=== PATIENT | female | born 1970 | race American Indian/Alaskan Native ===

== ENCOUNTER 2025-09-26 10:14 | Inpatient (IN) | payer MEDICAID, SELFPAY ==
[2025-09-26] VITALS (27 sets, daily range): BP systolic 124–181; BP diastolic 51–115; PULSE 62–97; RESP 11–82; TEMP 36–36.8; O2SAT 82–97; BMI 58.2; BMI 58.4
--- NOTE | 2025-09-26 10:20 | EKG_ITS ---
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
--- NOTE | 2025-09-26 11:10 | PC.NURSE ---
no answer when called to be vitaled
--- NOTE | 2025-09-26 11:30 | PC.NURSE ---
PT HERE WITH C/O SOB/FEELING HOT, COUGH, AND BACK PAIN FOR 1 WEEK
--- NOTE | 2025-09-26 12:02 | XR_ITS ---
EXAMINATION: AP chest single view TECHNIQUE: AP portable upright chest single view Date and time: September 26, 2025, 1233 hours, comparison November 09, 2023 INDICATIONS: Chest pain shortness of breath today. FINDINGS: The film is underpenetrated. The film is severely rotated LPO Moderate enlargement cardiac contour prominent vascular congestion and perihilar edema IMPRESSION: Severely limited technique Prominent heart failure
--- NOTE | 2025-09-26 12:03 | EDNOTE_ITS ---
ED SOB =RME/HPI General Chief Complaint: Shortness of Breath/Dyspnea Stated Complaint: SOB X 1 WEEK, FEVERS, COUGH, BACK PAIN Time Seen by Provider: 09/26/25 11:15 Arrival date/time: 09/26/25 10:14 55-year-old female patient, morbidly obese, with significant history of hypertension, COPD, depression diabetes mellitus came in for evaluation regarding shortness of breath. Patient's been having worsening shortness of breath for 1 week, associated with fever for 2 days last week, cough, and upper back pain. Patient is currently using oxygen at home on and off 2 L to help with shortness of breath. According to the patient for the last few days he is having dyspnea on exertion,, he had to stop wearing his walking because of worsening shortness of breath. Also complained of bilateral lower leg swelling severity mild. Denies any other complaints. Patient is from [place] she does arrive in this town 10 days ago. Related Data Home Medications ?Medication ?Instructions ?Recorded ?Confirmed albuterol sulfate 90 mcg/actuation 1 - 2 puff inhalati on Q4H PRN sob 12/04/16 11/03/21 aerosol inhaler (ProAir HFA) #0 inhalations arformoterol 15 mcg/2 mL solution 2 ml inhalation BID 11/03/21 11/03/21 for nebulization (Brovana) insulin glargine 100 unit/mL 25 unit subcut QDAY 11/0311/03/21 subcutaneous solution (Lantus U-100 Insulin) isosorbide mononitrate 30 mg 60 mg PO QDAY 11/03/21 tablet,extended release 24 hr buspirone 7.5 mg tablet 7.5 mg PO QDAY 06/27/2206/12 carvedilol 25 mg tablet 25 mg PO BID 06/27/22 cyclobenzaprine 10 mg tablet 10 mg PO QDAY 06/27/22 Previous Rx's ?Medication ?Instructions ?Recorded amlodipine 10 mg tablet (Norvasc) 10 mg PO QDAY #30 ta bs 09/05/23 amlodipine 5 mg tablet 10 mg (2 x 5 mg) PO QDAY #30 tabs 09/05/23 aspirin 81 mg capsule 81 mg PO QDAY #30 caps 09/05 aspirin 81 mg tablet,delayed 81 mg PO QDAY #30 tabs release atorvastatin 80 mg tablet 80 mg PO QPM #30 tabs atorvastatin 80 mg tablet 80 mg PO QPM #30 tabs sodium zirconium cyclosilicate 10 10 g PO QDAY #30 ea 09/05/23 gram oral powder packet (Lokelma) hydrochlorothiazide 25 mg tablet 25 mg PO QDAY #30 tab s 11/09/23 lisinopril 20 mg tablet 20 mg PO QDAY #30 tabs 11/09 methocarbamol 750 mg tablet 750 mg PO TID #20 tabs Allergies Allergy/AdvReac Type Severity Reaction Status Date / Time sertraline Allergy Intermediate SHAKY Verified 09/26/25 10:18 Review of Systems Review of Systems Narrative Review of Systems: Review of system reviewed and within normal limits except mentioned in HPI ED Exam Narrative Physical exam: VITAL SIGNS: Reviewed. GENERAL APPEARANCE: Alert and interactive, follows commands, no acute distress, HEAD AND FACE: Non-traumatic. ENT: PERRL, pink conjunctivitis, eyelid no trauma, Mucous membrane moist. NECK: Supple, nontender, no nuchal rigidity. CHEST: No tenderness, no crepitus, no paradoxical movement, no retractions. LUNGS: Clear, well ventilated, symmetric, no rales, no wheezing, no ronchi, no stridor, good breath sounds bilaterally. HEART: Regular rate, regular rhythm, no murmur, no gallops. ABDOMEN: Soft, positive bowel sounds, nondistended, no guarding, nontender, no rebound, no masses, RECTAL: Deferred. GENITAL: Deferred. NEUROLOGICAL: Gross motor function intact sensory function intact, Appropriate for age. MUSCULOSKELETAL: low back nontender, full range of motion. EXTREMITIES: Bilateral lower extremity edema +2 nontender, full range of motion. Distal neurovascular status intact SKIN: Color pink, dry, no rash, no lacerations, no abrasions, no contusions. LYMPHATICS: Deferred. Course Quality Measures none Orders Category Date Time Status Bedside Blood Glucose Q2HX3 Care 09/26/25 14:04 Active COVID-19 Screening Questionnaire NOW Care 09/26/25 14:08 Active Decision to Admit X1 Care 09/26/25 14:08 Active EKG (ED ONLY) *Do not use* NOW Care 09/26/25 10:21 Completed EKG (ED ONLY) *Do not use* NOW Care 09/26/25 12:03 Completed Consult to Nephrology Stat Cons 09/26/25 14:03 Ordered EKG (ED Only) Stat Exams 09/26/25 10:20 Draft EKG (ED Only) Stat Exams 09/26/25 12:03 Ordered XR chest 1V Stat Exams 09/26/25 12:02 Completed B-Type Natriuretic Peptide Stat Lab 09/26/25 12:00 Completed CBC Stat Lab 09/26/25 12:00 Completed Comprehensive Metabolic Panel Stat Lab 09/26/25 12:00 Completed Partial Thromboplastin Time Stat Lab 09/26/25 12:00 Completed Prothrombin Time with INR Stat Lab 09/26/25 12:00 Completed Troponin I Stat Lab 09/26/25 12:00 Completed Urinalysis, C/S if Indicated Stat Lab 09/26/25 12:02 Ordered VBG [Venous Blood Gas] Stat Lab 09/26/25 12:00 Completed ALBUTEROL RT 0.5ml [Proventil Rt 0.5ml] Med 09/26/25 14:03 Discontinued 7.5 mg INH X1 ONE Calcium Chloride 10% Abboject Med 09/26/25 14:03 Discontinued 10 ml IV X1 ONE Dexamethasone Inj [Decadron Inj] Med 09/26/25 12:06 Discontinued 10 mg IVP X1 ONE Furosemide Inj [Lasix Inj] Med 09/26/25 12:02 Discontinued 40 mg IVP X1 ONE Insulin Regular Med 09/26/25 14:03 Once 5 unit IV X1 ONE Nitroglycerin Oint 2% [Nitro-paste Oint 2%] Med 09/26/25 12:02 Discontinued 1 inch TOP X1 ONE Sod Polystyrene Sulfon Susp [Kayexalate Susp] Med 09/26/25 14:03 Discontinued 30 gm PO X1 ONE Sodium Chloride 0.9% 1000 ml [Ns] 1,000 ml Med 09/26/25 14:04 Active IV 999 mls/hr Sodium Chloride Rt Ariadne 0.9% [NS Rt Ariadne 0.9%] Med 09/26/25 14:03 Active 3 ml INH PRN PRN Vital Signs Vital signs: Vital Signs Pulse Oximetry (%) 87 L 09/26/25 10:21 Oxygen Delivery Method Nasal Cannula 09/26/25 10:21 Oxygen Flow Rate 2 09/26/25 10:21 Shortness of Breath / Dyspnea MDM Narrative MDM Narrative:: 55-year-old female patient, morbidly obese, with significant history of hypertension, COPD, depression diabetes mellitus came in for evaluation regarding shortness of breath. Patient's been having worsening shortness of breath for 1 week, associated with fever for 2 days last week, cough, and upper back pain. Patient is currently using oxygen at home on and off 2 L to help with shortness of breath. According to the patient for the last few days he is having dyspnea on exertion,, he had to stop wearing his walking because of worsening shortness of breath. Also complained of bilateral lower leg swelling severity mild. Denies any other complaints. Patient is from [place] she does arrive in this town 10 days ago. Patient's workup is significant for potassium 6.0, creatinine 4.4 BUN of 52 chest x-ray showed mild heart failure pattern. No pneumonia noted BNP 187 EKG showed sinus rhythm, ventricular rate of 63 bpm, no ST segment elevation or depression noted. Plan of care discussed with the patient including admission. Patient was given hyperkalemia treatment, including Lasix, IV fluids albuterol IV insulin IV glucose and Kayexalate. I discussed this case with bus operator on-call, Dr Cornell, who will see the latonia bernal also in the floor. Thank you Dr. Humphrey Case discussed with hospitalist, who admitted the patient. Patient data External records reviewed:: None Clinical information provided by:: patient and family Social determinants that could affect healthcare access:: none Patient has the following chronic illnesses:: Hypertension CKD, COPD How is presenting disease/condition affected by chronic disease/condition?: exa cerbated by Evaluation data The following diagnostics were reviewed and interpreted by me:: lab results, radiology exam(s) and EKG tracing(s) Lab and/or radiology exams considered but not ordered:: None Interpretation Summary: See above Medications / Prescriptions Medications or Prescriptions considered but not ordered:: None Medication administrations:: Medication Administration History Sodium Chloride (Ns) 1,000 mls @ 999 mls/hr IV .Q1H1M ONE Stop: 09/26/25 15:04 Insulin Human Regular (Insulin Hum Regular 1 Unit/0.01 Ml (Per Unit)) 5 unit IV X1 ONE Stop: 09/26/25 14:04 Sodium Chloride (Sodium Chloride Rt Ariadne 0.9% 3 Ml Nebu) 3 ml INH PRN PRN PRN Reason: SOLN Stop: 10/26/25 14:02 Discontinued Medications Albuterol (Albuterol Rt 2.5 Mg/0.5 Ml Nebu) 7.5 mg INH X1 ONE Stop: 09/26/25 14:04 Calcium Chloride (Calcium Chloride 10% Inj 10 Ml Syrg) 10 ml IV X1 ONE Stop: 09/26/25 14:04 Dexamethasone Sodium Phosphate (Dexamethasone Sod Phos Inj 10 Mg/Ml Vial) 10 mg IVP X1 ONE Stop: 09/26/25 12:07 Last Admin: 09/26/25 13:24 Dose: 10 mg Documented By: [facility] Comments: in error 2 iv sites showing Furosemide (Furosemide Inj 10 Mg/Ml 4ml Vial) 40 mg IVP X1 ONE Stop: 09/26/25 12:03 Last Admin: 09/26/25 13:27 Dose: 40 mg Documented By: [facility] Nitroglycerin (Nitroglycerin Oint 2% 1 Inch Packet) 1 inch TOP X1 ONE Stop: 09/26/25 12:03 Last Admin: 09/26/25 13:25 Dose: 1 inch Documented By: [facility] Sodium Polystyrene Sulfonate (Sod Polystyrene Sulfon Susp 15 Gm/60 Ml Btl) 30 gm PO X1 ONE Stop: 09/26/25 14:04 See above Consultations Consultation(s) initiated? (list below): Yes Consultation #1 (Physician, Specialty, Details): Dr Cornell Diagnosis Shortness of Breath Differential Diagnosis: acute exacerbation of chronic obstructive airways disease, congestive heart failure and community acquired pneumonia Most likely diagnosis given after review of the tests above:: Hyperkalemia, SUZANNE on CKD Admission Indicated Admission indicated?: indicated Admission Request Was there a request for admission?: Yes Admission Attestation Admission request attestation: Discussed case with [Dr. Jamshid Zhu] from Hospitalist service regarding admission. Discussed patients ED course, exam findings, labs, and radiology results. The Hospitalist [agrees,] to accept the patient for admission. Disposition Plan Disposition Plan: Admit Discharge Plan Plan Patient Disposition: Admit Acute Care w/in Hospital Prescriptions/Referrals Prescriptions/Med Rec: No Action albuterol sulfate [ProAir HFA] 8.5 GM HFA aerosol inhaler 1 - 2 puff Inhalation Q4H PRN (Reason: sob) Qty: 0 Lantus U-100 Insulin 100 unit/mL Solution 25 unit SUBCUT QDAY isosorbide mononitrate 30 mg Tablet Extended Release 24 Hr 60 mg PO QDAY arformoterol [Brovana] 15 mcg/2 mL Solution For Nebulization 2 ml INHALATION BID cyclobenzaprine 10 mg tablet 10 mg PO QDAY Patient Comments: TAKE ONE TABLET BY MOUTH TWICE DAILY NEEDED FOR muscle pain carvedilol 25 mg tablet 25 mg PO BID Patient Comments: TAKE ONE TABLET BY MOUTH TWICE DAILY WITH FOOD buspirone 7.5 mg tablet 7.5 mg PO QDAY Patient Comments: TAKE ONE TABLET BY MOUTH TWICE DAILY atorvastatin 80 mg Tablet 80 mg PO QPM Qty: 30 0RF amlodipine 5 mg Tablet 10 mg PO QDAY Qty: 30 0RF aspirin 81 mg Tablet,Delayed Release (Dr/Ec) 81 mg PO QDAY Qty: 30 0RF Lokelma 10 gram powder in packet 10 g PO QDAY Qty: 30 0RF aspirin 81 mg capsule 81 mg PO QDAY Qty: 30 0RF atorvastatin 80 mg tablet 80 mg PO QPM Qty: 30 0RF amlodipine [Norvasc] 10 mg tablet 10 mg PO QDAY Qty: 30 0RF lisinopril 20 mg tablet 20 mg PO QDAY Qty: 30 0RF hydrochlorothiazide 25 mg tablet 25 mg PO QDAY Qty: 30 0RF methocarbamol 750 mg tablet 750 mg PO TID Qty: 20 0RF Referrals: No Primary/Family,Physician [Primary Care Provider] - In 1 week Problem List Clinical Impression: Acute hyperkalemia, Acute kidney injury superimposed on chronic kidney disease Patient/Caregiver Discharge Instructions Print Language: Azeri Stand Alone Forms: Katerin Award Info., Patient Portal Info Letter
[2025-09-26 12:15] LABS: Base Excess, Venous -5 (-3-3); O2 Saturation, Venous 81 % (96-97); PCO2, Venous 59 mmHg (36-56); PO2, Venous 48 mmHg (15-58); pH, Venous 7.21 (7.33-7.66)
[2025-09-26 12:23] LABS: Basophils # (Auto) 0.1 Thou/mm3 (0.0-0.2); Basophils % (Auto) 1 % (0-2.5); Eosinophils # (Auto) 0.1 Thou/mm3 (0.0-0.5); Eosinophils % (Auto) 1 % (0-10); Hematocrit 35.8 % (36.0-46.0); Hemoglobin 10.3 g/dL (12.0-16.0); Immature Granulocytes Auto 0.15 Thou/mm3 (0.00-0.00); Lymphocytes # (Auto) 0.6 Thou/mm3 (1.0-4.8); Lymphocytes % (Auto) 8 % (10-50); Mean Corpuscular HGB Conc 28.8 g/dl (31.0-37.0); Mean Corpuscular Hemoglobin 27.2 pg (25.0-35.0); Mean Corpuscular Volume 95 fL (80-100); Monocytes # (Auto) 0.4 Thou/mm3 (0.0-0.8); Monocytes % (Auto) 5 % (0-12); Neutrophils # (Auto) 6.4 Thou/mm3 (1.8-7.7); Neutrophils % (Auto) 83 % (37-80); Nucleated Red Blood Cell # 0.03 Thou/mm3 (0.00-0.00); Nucleated Red Blood Cell % 0 /100 WBC (0); Platelet Count 207 Thou/mm3 (140-440); RDW Standard Deviation 48.5 fL (36.4-46.3); Red Blood Count 3.79 Miln/mm3 (4.00-5.20); White Blood Count 7.7 Thou/mm3 (3.6-11.0)
[2025-09-26 12:35] LABS: INR 1.1 (0.9-1.3); Partial Thromboplastin Time 32.9 Seconds (22.0-36.0); Prothrombin Time 11.4 Seconds (9.0-12.2)
--- NOTE | 2025-09-26 12:53 | PC.NURSE ---
MEDS DELAYED DUE TO NO IV ACCESS AFTER MULTIPLE ATTEMPTS
[2025-09-26 13:06] LABS: Alanine Aminotransferase 8 U/L (10-49); Albumin, Serum 4.0 gm/dL (3.5-5.0); Albumin/Globulin Ratio 1.5 (1.2-2.2); Alkaline Phosphatase 55 U/L (46-116); Anion Gap 8 (7-16); Aspartate Amino Transferase < 10 U/L (0-34); BUN/Creatinine Ratio 12 Ratio (12-20); Bilirubin,Total 0.3 mg/dL (0.3-1.2); Blood Urea Nitrogen 52 mg/dL (9-23); Calcium 8.6 mg/dL (8.3-10.6); Calcium (Corrected) 8.6 mg/dL (8.5-10.1); Carbon Dioxide 23.4 mMol/L (20.0-31.0); Chloride 112 mMol/L (98-107); Creatinine (Component) 4.4 mg/dL (0.6-1.3); Estimated Creatinine Clearance 21.8 mL/min (>60); Globulin 2.6 gm/dL (2.3-3.5); Glucose 160 mg/dL (74-106); Osmolality,Calculated 301 (275-295); Potassium 6.0 mMol/L (3.4-5.1); Sodium 143 mMol/L (136-145); Total Protein 6.6 gm/dL (5.7-8.2); Troponin I < 0.002 ng/mL (0.0-0.045); eGFR 11 See Note
[2025-09-26 13:16] LABS: B-Type Natriuretic Peptide 187 pg/mL (0-100)
[2025-09-26] MEDS: DEXAMETHASONE SOD PHOS INJ 10 MG/ML VIAL IVP (13:24)
[2025-09-26] MEDS: NITROGLYCERIN OINT 2% 1 INCH PACKET TOP (13:25)
[2025-09-26] MEDS: FUROSEMIDE INJ 10 MG/ML 4ML VIAL 40 MG IVP ×2 (13:27→18:56)
[2025-09-26] MEDS: SODIUM CHLORIDE RT SOL 0.9% 3 ML NEBU INH (14:27)
[2025-09-26] MEDS: ALBUTEROL RT 2.5 MG/0.5 ML NEBU 7.5 MG INH (14:27)
[2025-09-26] MEDS: INSULIN HUM REGULAR 1 UNIT/0.01 ML (PER UNIT) 5 UNIT IV (14:45)
[2025-09-26] MEDS: DEXTROSE 50%-WATER INJ 50 ML SYRINGE IV (14:47)
[2025-09-26] MEDS: SOD POLYSTYRENE SULFON SUSP 15 GM/60 ML BTL 30 GM PO (14:48)
[2025-09-26] MEDS: CALCIUM CHLORIDE 10% INJ 10 ML SYRG IV (14:48)
[2025-09-26] MEDS: SODIUM CHLORIDE 0.9% 1000 ML 1,000 ML 999 ML IV (14:49)
--- NOTE | 2025-09-26 14:58 | PD.RESHP ---
Documentation for date of: 09/26/25 HPI History of Present Illness Chief complaint: Shortness of breath History of present illness: A 55-year-old female who who is morbidly obese with significant past medical history of hypertension, diabetes mellitus, heart failure, chronic kidney disease, hyperlipidemia, chronic anemia, obstructive sleep apnea on CPAP, on oxygen, 2 L at home presented to the hospital with chief complaints of shortness of breath since 3 days. Patient is a resident of [place], [place] came to visit her family 5 days ago. Reported that she is not compliant with medications over the last 5 days. Noted that shortness of breath is gradual in onset and progressive in nature also noted to have mild pedal edema but also reported that she has on and off pedal edema. Denies PND, orthopnea. Reported that she had a febrile episode 2 days before the day of hospitalization which resolved even without taking any medication. Denies cough, nausea, vomiting, abdominal distention, diarrhea, any other associated symptoms. Patient reported that she follows with field operator in [place] and is currently not on any dialysis. Reported that her urine output is normal and did not notice any decrease in urine output ED course: - Vitals at the time of admission are significant for blood pressure 160/75 mmHg, pulse rate 62 bpm, respiratory rate 21/min, temperature 97.4 ?F, SpO2 87% with nasal cannula, 2 L - Labs at the time of admission are significant for hemoglobin 10.3, potassium 6, BUN 52, creatinine 4.4, BNP 187 - Chest x-ray was done but had poor visualization and noted to have vascular congestion. - EKG done at the time of admission showed normal sinus rhythm with no acute ST and T wave changes - Patient received Lasix and nebulization, hyperkalemia treatment in the ED Past medical history: Hypertension, diabetes mellitus, heart failure, chronic kidney disease, hyperlipidemia, chronic anemia, obstructive sleep apnea, vertebral fracture Past surgical history: Denies major surgeries Social history: Drank alcohol for 30 years, 1 case of beer every day and stopped it couple of years ago, smokes marijuana but denied smoking tobacco, using other illicit drug abuse Allergies: NKDA Review of Systems Review of Systems Systems Reviewed: All systems reviewed, normal except as documented Exam Vital Signs Temp Pulse Resp BP Pulse Ox O2 Del Method O2 Flow Rate 98.1 F 79 23 H 174/85 H 91 L Nasal Cannula 4 09/26/25 14:52 09/26/25 14:52 09/26/25 14:52 09/26/25 14:52 09/26/25 14:52 09/26/25 14:52 09/26/25 14:52 Narrative Exam General: Awake. morbidly obese HEENT: Normocephalic, atraumatic, mucous membranes moist. Heart: Regular rate and rhythm, no murmurs. Lungs: Clear to auscultation with no wheezing or crackles. Abdomen: Soft, nondistended, nontender, positive bowel sounds. ?No guarding or rebound tenderness. Neurologic: Alert and oriented x3, no gross neurological deficit, and patient able to move all 4 extremities. Extremities: No edema. Skin: No rash or ecchymoses. Results: Labs 09/27/25 05:06 09/27/25 05:06 Labs: Short CBC 09/26/25 Range/Units 12:00 WBC 7.7 (3.6-11.0) Thou/mm3 Hgb 10.3 L (12.0-16.0) g/dL Hct 35.8 L (36.0-46.0) % Plt Count 207 (140-440) Thou/mm3 BMP 09/26/25 12:00 Sodium 143 Potassium 6.0 H Chloride 112 H Carbon Dioxide 23.4 BUN 52 H Creatinine 4.4 H* Glucose 160 H Calcium 8.6 Cardiac Enzymes 09/26/25 Range/Units 12:00 Troponin I < 0.002 (0.0-0.045) ng/mL Liver Function 09/26/25 Range/Units 12:00 Total Bilirubin 0.3 (0.3-1.2) mg/dL AST < 10 (0-34) U/L ALT 8 L (10-49) U/L Alkaline Phosphatase 55 (46-116) U/L Albumin 4.0 (3.5-5.0) gm/dL ABG Interpretation ABG results: 09/26/25 12:00 VBG pH 7.21 L VBG pCO2 59 H VBG pO2 48 VBG Base Excess -5 L Quality Measures Quality Measures none Medications Home Medications and Allergies Home Medications ?Medication ?Instructions ?Recorded ?Confirmed ?Type albuterol sulfate 90 mcg/actuation 1 - 2 puff inhalation Q4H PRN sob 12/04/16 09/26/25 History aerosol inhaler (ProAir HFA) #0 inhalations arformoterol 15 mcg/2 mL solution 2 ml inhalation BID 11/03/21 09/26/25 History for nebulization (Brovana) insulin glargine 100 unit/mL 25 unit subcut QDAY 11/03/21 09/26/25 History subcutaneous solution (Lantus U-100 Insulin) isosorbide mononitrate 30 mg 60 mg PO QDAY 11/03/21 09/26/25 History tablet,extended release 24 hr buspirone 7.5 mg tablet 7.5 mg PO QDAY 06/27/22 09/26/25 History carvedilol 25 mg tablet 25 mg PO BID 06/27/22 09/26/25 History cyclobenzaprine 10 mg tablet 10 mg PO BID PRN muscle spasm 06/27/22 09/26/25 History diclofenac sodium 1 % topical gel 2 g topical QID PRN muscle pain 09/26/25 09/26/25 History hydrochlorothiazide 25 mg tablet 25 mg PO TID 09/26/25 09/26/25 History lidocaine 5 % topical patch 1 patch topical QDAY PRN back pain 09/26/25 09/26/25 History tizanidine 2 mg capsule 2 mg PO Q8H PRN muscle spasticity 09/26/25 09/26/25 History Allergies Allergy/AdvReac Type Severity Reaction Status Date / Time sertraline Allergy Intermediate SHAKY Verified 09/26/25 10:18 Visit Medications Acetaminophen (Acetaminophen 325 Mg Tablet) 650 mg PO Q6H PRN PRN Reason: Fever >101.5 Stop: 10/26/25 14:36 Heparin Sodium (Porcine) (Heparin Sod Inj 5000 Unit/Ml Vial) 5,000 unit SC Q12HR GERHARD Stop: 10/10/25 20:59 Sodium Chloride (Ns) 1,000 mls @ 999 mls/hr IV .Q1H1M ONE Stop: 09/26/25 15:04 Last Admin: 09/26/25 14:49 Dose: 999 mls/hr Ondansetron HCl (Ondansetron Inj 2 Mg/Ml Inj 2 Ml) 4 mg IVP Q6H PRN; Protocol PRN Reason: NAUSEA OR VOMITING Stop: 10/26/25 14:36 Pantoprazole Sodium (Pantoprazole Inj 40 Mg Vial) 40 mg IVP QDAY GERHARD Stop: 10/27/25 08:59 Sennosides (Senna Tablet) 1 tab PO QDAY GERHARD; Protocol Stop: 10/27/25 08:59 Sodium Chloride (Sodium Chloride Rt Ariadne 0.9% 3 Ml Nebu) 3 ml INH PRN PRN PRN Reason: SOLN Stop: 10/26/25 14:02 Last Admin: 09/26/25 14:27 Dose: 3 ml Discontinued Medications Albuterol (Albuterol Rt 2.5 Mg/0.5 Ml Nebu) 7.5 mg INH X1 ONE Stop: 09/26/25 14:04 Last Admin: 09/26/25 14:27 Dose: 7.5 mg Calcium Chloride (Calcium Chloride 10% Inj 10 Ml Syrg) 10 ml IV X1 ONE Stop: 09/26/25 14:04 Last Admin: 09/26/25 14:48 Dose: 10 ml Dexamethasone Sodium Phosphate (Dexamethasone Sod Phos Inj 10 Mg/Ml Vial) 10 mg IVP X1 ONE Stop: 09/26/25 12:07 Last Admin: 09/26/25 13:24 Dose: 10 mg Dextrose (Dextrose 50%-Water Inj 50 Ml Syringe) 50 ml IV X1 ONE Stop: 09/26/25 14:16 Last Admin: 09/26/25 14:47 Dose: 50 ml Furosemide (Furosemide Inj 10 Mg/Ml 4ml Vial) 40 mg IVP X1 ONE Stop: 09/26/25 12:03 Last Admin: 09/26/25 13:27 Dose: 40 mg Insulin Human Regular (Insulin Hum Regular 1 Unit/0.01 Ml (Per Unit)) 5 unit IV X1 ONE Stop: 09/26/25 14:04 Last Admin: 09/26/25 14:45 Dose: 5 unit Nitroglycerin (Nitroglycerin Oint 2% 1 Inch Packet) 1 inch TOP X1 ONE Stop: 09/26/25 12:03 Last Admin: 09/26/25 13:25 Dose: 1 inch Sodium Polystyrene Sulfonate (Sod Polystyrene Sulfon Susp 15 Gm/60 Ml Btl) 30 gm PO X1 ONE Stop: 09/26/25 14:04 Last Admin: 09/26/25 14:48 Dose: 30 gm Assessment & Plan Plan A 55-year-old female who who is morbidly obese with significant past medical history of hypertension, diabetes mellitus, heart failure, chronic kidney disease, hyperlipidemia, chronic anemia, obstructive sleep apnea on CPAP, on oxygen, 2 L at home presented to the hospital with chief complaints of shortness of breath since 3 days. # Acute on chronic hypoxic hypercapnic respiratory failure # 2/2 Fluid overload - CHF Vs Acute on CKD # Medication incompliance - Presented to the hospital with chief complaints of shortness of breath since 3 days - Reported 1 febrile episode 2 days before the hospital admission but denies cough, sputum production - Reported that she is not taking her medications since 5 days - Patient is using 2 L of oxygen at home as needed but noted to have SpO2 87% with 2 L nasal cannula and noted to have increased oxygen requirements - On auscultation, no abnormal breath sounds are appreciated as the patient is obese - Chest x-ray is done, noted to have vascular congestion but noted to have poor quality image Plan - Started on IV Lasix 40 mg IV twice daily - Strict input and output - Fluid restriction to 2000 mL - Continue oxygen - Nebulizations every 8 hourly scheduled - CPAP/BiPAP at bedtime - Started on ceftriaxone 1 g IV daily in view of suspected underlying respiratory infection as patient reported febrile episode # Acute on chronic kidney disease versus CKD versus cardiorenal syndrome - Creatinine at the time of admission is 4.4, baseline creatinine in 2022 is 1.6 - Reported that she is following with a field operator in [place] but not on hemodialysis and reported that her GFR is less than 30% the last time she visited the doctor - Reported that she did not notice any changes in urine output Plan - Will continue to monitor renal functions - Supervisor Ditching, Dr. Purdy is consulted and recommended no need of dialysis as of now - Strict input and output monitoring - Avoid nephrotoxic medications and renally dose medications - Held lisinopril for now - Renal ultrasound is ordered # Hyperkalemia -Likely secondary to the ongoing kidney disease - Potassium at the time of admission is 6 - Patient is using Lokelma at home Plan - Patient was given Kayexalate 30 g and albuterol nebulization in the ED - Repeat renal panel is ordered, will follow-up with results #? CHF - Patient noted to have shortness of breath but no orthopnea and PND episodes - But patient reported that she had history of heart disease and is currently using aspirin, atorvastatin and carvedilol Plan - Lasix 40 mg IV twice daily - Fluid restriction - Strict intake and output - CPAP at bedtime - Echocardiogram is ordered - Resumed aspirin, statin # Obstructive sleep apnea - Patient had history of obstructive sleep apnea and is using CPAP at night - CPAP/BiPAP at night # Diabetes, type II - Patient is using insulin at home Plan - HbA1c is ordered - Started on insulin sliding scale - Will adjust the insulin based on sugars - Hypoglycemic protocol in place # Hypertension - Blood pressure at the time of admission is 160/75 mmHg Plan - Held lisinopril in view of hyperkalemia and suspected SUZANNE - Started on amlodipine 10 mg daily Hospital Maintenance: Dispo: Telemetry DVT ppx: Heparin GI ppx: Protonix Diet: Renal IV lines: Peripheral Code status: Full code Patient plan of care was discussed with the attending physician, Dr. Michael Hooks, PGY2 Attending Provider Attestation/Addendum I have examined the patient, reviewed labs and imaging findings, discussed the case with the resident(s), and reviewed entered orders. I agree with the plan of care as outlined in this note, with these additional summaries/recommendations: After examination of the patient and review of the clinical data, I feel that this patient needs admission to the hospital for further treatment and evaluation. Patient is a 55-year-old female with a medical history of DANYA, obesity, COPD, CHF, primary hypertension, hyperlipidemia, anxiety, CKD, and hyperkalemia presents to [facility] emergency department on 09/26/2025 with chief complaint of shortness of breath. Patient seen at bedside. Patient diagnosed with acute on chronic hypercapnic respiratory failure. Most likely secondary to fluid overload from CKD versus less likely CHF?. Patient does have a history of COPD although no wheezing noted. Start IV Lasix. Strict I's and O's. Fluid restriction. Breathing treatments as needed. CPAP/BiPAP at night for history of DANYA. Patient diagnosed with SUZANNE on CKD. Possibly secondary to cardiorenal syndrome. Hyperkalemia also present. Patient given temporizing measures and Kayexalate. Follow-up repeat potassium. Consult in-house nephrology, recommendations appreciated. Avoid nephrotoxic agents and renally dose medications. Repeat renal panel in AM. Order echocardiogram. Start insulin sliding scale for diabetes mellitus type 2 with Accu-Cheks. Target blood sugar 140-180 while hospitalized. Order A1c. Continue home antihypertensives. Patient updated on the plan and agreement. All questions answered to satisfaction. Please see residents note for additional details and management. Dr. Michael MD
--- NOTE | 2025-09-26 16:27 | PC.NURSE ---
PT INCONT OF SMALL AMOUNT STOOL IN SHORT PANTS. REQUESTED THAT PANTS BE THROW AWAY
--- NOTE | 2025-09-26 16:38 | PC.NURSE ---
UNABLE TO DO MED REC AT THIS TIME. WAITING FOR FAMILY TO BRING IN MEDICATION BOTTLES
[2025-09-26 17:21] LABS: Albumin, Serum 4.4 gm/dL (3.5-5.0); Anion Gap 9 (7-16); BUN/Creatinine Ratio 10 Ratio (12-20); Blood Urea Nitrogen 44 mg/dL (9-23); Calcium 9.2 mg/dL (8.3-10.6); Calcium (Corrected) 9.2 mg/dL (8.5-10.1); Carbon Dioxide 22.1 mMol/L (20.0-31.0); Chloride 113 mMol/L (98-107); Creatinine (Component) 4.3 mg/dL (0.6-1.3); Estimated Creatinine Clearance 22.3 mL/min (>60); Glucose 160 mg/dL (74-106); Osmolality,Calculated 301 (275-295); Phosphorous 5.6 mg/dL (2.4-5.1); Potassium 5.8 mMol/L (3.4-5.1); Sodium 144 mMol/L (136-145); eGFR 11 See Note
[2025-09-26] MEDS: cefTRIAXone/D5w 1gm IV premix 1 GM/50 ML BAG IV (17:51)
--- NOTE | 2025-09-26 17:59 | PC.NURSE ---
PT REQUESTING ANXIETY MEDICATION. CALLED ALL NUMBERS FOR TEAM A AND NO ANSWER. MESSAGE LEFT FOR DR. ADAMS
[2025-09-26 18:48] LABS: Influenza A Ag Negative; Influenza B Ag Negative
--- NOTE | 2025-09-26 20:52 | PC.NURSE ---
report was given to lorie YADAV. pt taken to rm [id number] on monitor by rn.
[2025-09-26] MEDS: ACETAMINOPHEN 325 MG TABLET 650 MG PO (21:42)
[2025-09-26] MEDS: HEPARIN SOD INJ 5000 UNIT/ML VIAL SC (21:43)
[2025-09-26] MEDS: INSULIN LISPRO (AdmeLOG) 1 UNIT/0.01 ML UNIT SC (21:43)
[2025-09-26] MEDS: ALBUTEROL/IPRATROPIUM (Duoneb) RT SOL 3 ML NEBU INH (22:27)
[2025-09-27] VITALS (16 sets, daily range): BP systolic 143–180; BP diastolic 60–83; PULSE 65–97; RESP 16–91; TEMP 36–36.4; O2SAT 92–99; BMI 58.4
[2025-09-27 02:32] LABS: Collection Type, Urine Clean Catch
[2025-09-27 02:43] LABS: Bacteria,Urine Rare; Bilirubin,Urine Negative (Negative); Blood,Urine Negative (Negative); Clarity,Urine Clear (Clear/Hazy); Color,Urine Colorless (Lt Yel-Yel); Glucose, Urine 1+ (Negative); Hyaline Casts,Urine 1 /hpf (0-1); Ketones,Urine Negative (Negative); Leukocyte Esterase,Urine Negative (Negative); Nitrite,Urine Negative (Negative); PH,Urine 5.5 (5.0-7.0); Protein,Urine 2+ (Neg - Trace); RBC,Urine 1 /hpf (0-3); Specific Gravity,Urine 1.008 (1.001-1.035); Squamous Epithelial Cell,Urine 1 /hpf (0-5); Urobilinogen,Urine Negative mg/dL (0.0-1.0); WBC,Urine 12 /hpf (0-5)
[2025-09-27 02:44] LABS: Culture Indicated,Urine Yes
[2025-09-27 05:53] LABS: Basophils # (Auto) 0.0 Thou/mm3 (0.0-0.2); Basophils % (Auto) 1 % (0-2.5); Eosinophils # (Auto) 0.0 Thou/mm3 (0.0-0.5); Eosinophils % (Auto) 0 % (0-10); Hematocrit 31.3 % (36.0-46.0); Hemoglobin 9.1 g/dL (12.0-16.0); Immature Granulocytes Auto 0.14 Thou/mm3 (0.00-0.00); Lymphocytes # (Auto) 0.7 Thou/mm3 (1.0-4.8); Lymphocytes % (Auto) 10 % (10-50); Mean Corpuscular HGB Conc 29.1 g/dl (31.0-37.0); Mean Corpuscular Hemoglobin 27.4 pg (25.0-35.0); Mean Corpuscular Volume 94 fL (80-100); Monocytes # (Auto) 0.2 Thou/mm3 (0.0-0.8); Monocytes % (Auto) 4 % (0-12); Neutrophils # (Auto) 5.5 Thou/mm3 (1.8-7.7); Neutrophils % (Auto) 84 % (37-80); Nucleated Red Blood Cell # 0.03 Thou/mm3 (0.00-0.00); Nucleated Red Blood Cell % 1 /100 WBC (0); Platelet Count 209 Thou/mm3 (140-440); RDW Standard Deviation 47.8 fL (36.4-46.3); Red Blood Count 3.32 Miln/mm3 (4.00-5.20); White Blood Count 6.5 Thou/mm3 (3.6-11.0)
[2025-09-27] MEDS: ALBUTEROL/IPRATROPIUM (Duoneb) RT SOL 3 ML NEBU INH ×3 (05:59→23:44)
[2025-09-27 06:12] LABS: Glucose Estimated Average 148 mg/dL (80-131); Hemoglobin A1C 6.8 % Hgb (4.8-6.0)
[2025-09-27] MEDS: FUROSEMIDE INJ 10 MG/ML 4ML VIAL 40 MG IVP ×2 (06:27→17:20)
[2025-09-27 06:35] LABS: Alanine Aminotransferase 7 U/L (10-49); Albumin, Serum 3.6 gm/dL (3.5-5.0); Albumin/Globulin Ratio 1.5 (1.2-2.2); Alkaline Phosphatase 43 U/L (46-116); Anion Gap 9 (7-16); Aspartate Amino Transferase 11 U/L (0-34); BUN/Creatinine Ratio 13 Ratio (12-20); Bilirubin,Total 0.2 mg/dL (0.3-1.2); Blood Urea Nitrogen 54 mg/dL (9-23); Calcium 8.9 mg/dL (8.3-10.6); Calcium (Corrected) 9.2 mg/dL (8.5-10.1); Carbon Dioxide 23.6 mMol/L (20.0-31.0); Cardiac Risk Estimate 4.6 RATIO (3.7-5.6); Chloride 112 mMol/L (98-107); Cholesterol 110 mg/dL (132-200); Creatinine (Component) 4.2 mg/dL (0.6-1.3); Estimated Creatinine Clearance 22.8 mL/min (>60); Globulin 2.4 gm/dL (2.3-3.5); Glucose 170 mg/dL (74-106); HDL Cholesterol 24 mg/dL (40-60); LDL Cholesterol,Calculated 54 mg/dL (0-130); Magnesium 2.4 mg/dL (1.6-2.6); Osmolality,Calculated 307 (275-295); Potassium 5.9 mMol/L (3.4-5.1); Sodium 145 mMol/L (136-145); Thyroid Stimulating Hormone 1.36 uIU/mL (0.55-4.78); Total Protein 6.0 gm/dL (5.7-8.2); Triglycerides 162 mg/dL (30-150); eGFR 12 See Note
[2025-09-27 06:46] LABS: Iron 39 mcg/dL (50-170); Percent Iron Saturation 11 % (20-55); Total Iron Binding Capacity 329 mcg/dL (250-425); Unsaturated Iron Binding 290 (225-295)
[2025-09-27] MEDS: SOD POLYSTYRENE SULFON SUSP 15 GM/60 ML BTL 30 GM PO (07:52)
[2025-09-27] MEDS: NIFEdipine XL 30 MG TABCR 60 MG PO (07:53)
[2025-09-27] MEDS: CALCIUM GLUCONATE 10% INJ 1 GM/10 ML VIAL IV (07:54)
[2025-09-27] MEDS: HEPARIN SOD INJ 5000 UNIT/ML VIAL SC ×2 (08:11→20:40)
--- NOTE | 2025-09-27 10:29 | XR_ITS ---
Examination: Retroperitoneal ultrasound, complete Technique: Multiple high resolution grayscale images of the retroperitoneum obtained, including kidneys and bladder. Exam date and time: September 27, 2025, 10:50 a.m. INDICATIONS: Diagnosis acute renal insufficiency laboratory examination today. FINDINGS: Right kidney 13.7 cm renal cortex 2.1 cm Mid pole cyst 38 mm Left kidney 8 not diagnostically visualized Contracted urinary bladder IMPRESSION: Limited study Normal size right kidney with no right hydronephrosis
--- NOTE | 2025-09-27 10:36 | PC.SS ---
Patient is alert/oriented. Patient was able to verify demographics. Patient is independent with ADL's. Patient was not using any DME to ambulate. She was admitted for acute chronic hypox respiratory failure. Patient states she was recenty at [facility] for about 3 months then was discharged and moved to [place], [place] with family. Patient ended up coming back home to visit and became SOB and was admitted. Patient states she will be staying now. She wants to d/c back to [facility] short term. Patient uses 02 contiuously and had a sleep study out of state and uses a CPAP machine at night. Patient states she has not established a p.c.p. here yet. Patient's insurance coverage is through [facility]. Alt medical decision maker: Eddy Arauz, son, does not recall his phone number at this time. transortation: marvin lópez with 02.
[2025-09-27] MEDS: cefTRIAXone/D5w 1gm IV premix 1 GM/50 ML BAG IV (13:07)
[2025-09-27 13:33] LABS: Albumin, Serum 4.0 gm/dL (3.5-5.0); Anion Gap 10 (7-16); BUN/Creatinine Ratio 12 Ratio (12-20); Blood Urea Nitrogen 49 mg/dL (9-23); Calcium 9.3 mg/dL (8.3-10.6); Calcium (Corrected) 9.3 mg/dL (8.5-10.1); Carbon Dioxide 25.5 mMol/L (20.0-31.0); Chloride 111 mMol/L (98-107); Creatinine (Component) 4.1 mg/dL (0.6-1.3); Estimated Creatinine Clearance 23.4 mL/min (>60); Glucose 135 mg/dL (74-106); Osmolality,Calculated 305 (275-295); Phosphorous 5.6 mg/dL (2.4-5.1); Potassium 4.9 mMol/L (3.4-5.1); Sodium 146 mMol/L (136-145); eGFR 12 See Note
--- NOTE | 2025-09-27 14:26 | ESPR_ITS ---
Documentation for date of: 09/27/25 Subjective Subjective Interval history: Patient is seen and examined at bedside No acute overnight events. Reported that she is feeling good from yesterday On CPAP overnight. Denies any other complaints. Labs done this morning significant for potassium 5.9, creatinine 4.2, A1c 6.8, phosphorus 5.6 Patient is making adequate amount of urine. Renal ultrasound done showed atrophic left kidney 30 g of Kayexalate, 1 dose of calcium gluconate is given in view of hyperkalemia Started on nifedipine 60 mg once daily for the elevated blood pressure Exam Vital Signs Temp Pulse Resp BP Pulse Ox O2 Del Method O2 Flow Rate 97.1 F 75 20 143/60 H 94 L Nasal Cannula 4 09/27/25 12:00 09/27/25 13:46 09/27/25 13:46 09/27/25 12:00 09/27/25 13:46 09/27/25 12:00 09/27/25 13:46 FiO2 4 09/27/25 06:00 Narrative Exam General: Awake. Morbidly obese HEENT: Normocephalic, atraumatic, mucous membranes moist. Heart: Regular rate and rhythm, no murmurs. Lungs: Clear to auscultation with no wheezing or crackles. Abdomen: Soft, nondistended, nontender, positive bowel sounds. ?No guarding or rebound tenderness. Neurologic: Alert and oriented x3, no gross neurological deficit, and patient able to move all 4 extremities. Extremities: Bilateral 1+ pitting pedal edema Skin: No rash or ecchymoses. Objective Labs 09/28/25 05:17 09/28/25 05:17 Labs: Laboratory Results - last 24 hr 09/26/25 09/26/25 09/26/25 16:53 17:55 21:45 WBC RBC Hgb Hct MCV MCH MCHC RDW Std Deviation Plt Count Neut % (Auto) Lymph % (Auto) [place] % (Auto) Eos % (Auto) Baso % (Auto) Neut # (Auto) Lymph # (Auto) [place] # (Auto) Eos # (Auto) Baso # (Auto) Immature Gran # (Auto) Absolute Nucleated RBC Immature Gran % Nucleated RBC % Sodium 144 Potassium 5.8 H Chloride 113 H Carbon Dioxide 22.1 Anion Gap 9 BUN 44 H Creatinine 4.3 H* Estim Creat Clear Calc 22.3 L eGFR 11 L* BUN/Creatinine Ratio 10 L Glucose [address] Glu mg/dL Hemoglobin A1c Calculated Osmolality 301 H Calcium 9.2 Corrected Calcium 9.2 Phosphorus 5.6 H Magnesium Iron TIBC Iron Saturation Unsat Iron Binding Total Bilirubin AST ALT Alkaline Phosphatase Total Protein Albumin 4.4 Globulin Albumin/Globulin Ratio Triglycerides Cholesterol LDL Cholesterol, Calc HDL Cholesterol Cholesterol/HDL Ratio TSH Ur Collection Type Clean Catch Urine Color Colorless A Urine Clarity Clear Urine pH 5.5 Ur Specific Mission 1.008 Urine Protein 2+ A Urine Glucose (UA) 1+ A Urine Ketones Negative Urine Blood Negative Urine Nitrite Negative Urine Bilirubin Negative Urine Urobilinogen (Auto) Negative Ur Leukocyte Esterase Negative Urine RBC 1 Urine WBC 12 H Ur Squamous Epith Cells 1 Urine Bacteria Rare Hyaline Casts 1 Ur Culture Indicated? Yes Influenza A (Rapid) Negative Influenza B (Rapid) Negative 09/27/25 09/27/25 05:06 12:44 WBC 6.5 RBC 3.32 L Hgb 9.1 L Hct 31.3 L MCV 94 MCH 27.4 MCHC 29.1 L RDW Std Deviation 47.8 H Plt Count 209 Neut % (Auto) 84 H Lymph % (Auto) 10 [place] % (Auto) 4 Eos % (Auto) 0 Baso % (Auto) 1 Neut # (Auto) 5.5 Lymph # (Auto) 0.7 L [place] # (Auto) 0.2 Eos # (Auto) 0.0 Baso # (Auto) 0.0 Immature Gran # (Auto) 0.14 H Absolute Nucleated RBC 0.03 H Immature Gran % 2 H Nucleated RBC % 1 H Sodium 145 146 H Potassium 5.9 H 4.9 D Chloride 112 H 111 H Carbon Dioxide 23.6 25.5 Anion Gap 9 10 BUN 54 H 49 H Creatinine 4.2 H* 4.1 H* Estim Creat Clear Calc 22.8 L 23.4 L eGFR 12 L* 12 L* BUN/Creatinine Ratio 13 12 Glucose [address] Glu mg/dL 148 H Hemoglobin A1c 6.8 H Calculated Osmolality 307 H 305 H Calcium 8.9 9.3 Corrected Calcium 9.2 9.3 Phosphorus 5.6 H Magnesium 2.4 Iron 39 L TIBC 329 Iron Saturation 11 L Unsat Iron Binding 290 Total Bilirubin 0.2 L AST 11 ALT 7 L Alkaline Phosphatase 43 L D Total Protein 6.0 Albumin 3.6 D 4.0 Globulin 2.4 Albumin/Globulin Ratio 1.5 Triglycerides 162 H Cholesterol 110 L LDL Cholesterol, Calc 54 HDL Cholesterol 24 L Cholesterol/HDL Ratio 4.6 TSH 1.36 Ur Collection Type Urine Color Urine Clarity Urine pH Ur Specific Mission Urine Protein Urine Glucose (UA) Urine Ketones Urine Blood Urine Nitrite Urine Bilirubin Urine Urobilinogen (Auto) Ur Leukocyte Esterase Urine RBC Urine WBC Ur Squamous Epith Cells Urine Bacteria Hyaline Casts Ur Culture Indicated? Influenza A (Rapid) Influenza B (Rapid) ABG Interpretation ABG results: 09/26/25 12:00 VBG pH 7.21 L VBG pCO2 59 H VBG pO2 48 VBG Base Excess -5 L Quality Measures Quality Measures none Assessment & Plan Assessment Current Active Medications: Generic Name Dose Route Start Last Admin Trade Name Freq PRN Reason Stop Dose Admin Acetaminophen 650 mg 09/27/25 13:01 Acetaminophen 325 Mg Tablet PO 10/26/25 14:36 Q6H PRN Fever >100.4 Albuterol/Ipratropium 3 ml 09/26/25 23:00 09/27/25 13:46 Albuterol/Ipratropium (Duoneb) Rt Ariadne 3 Ml Nebu INH 10/26/25 22:59 3 ml Q8HRRT GERHARD Administration Dextrose 25 ml 09/26/25 16:39 Dextrose 50%-Water Inj 50 Ml Syringe IV 10/26/25 16:38 Q15MIN PRN BG 50-70 responsive npo pt Dextrose 50 ml 09/26/25 16:39 Dextrose 50%-Water Inj 50 Ml Syringe IV 10/26/25 16:38 Q15MIN PRN BG <50 OR BG <70 & pt unresponsive Furosemide 40 mg 09/26/25 18:00 09/27/25 06:27 Furosemide Inj 10 Mg/Ml 4ml Vial IVP 10/26/25 17:59 40 mg BIDD GERHARD Administration Glucagon 1 mg 09/26/25 16:39 Glucagon Inj 1 Mg Vial IM Q15MIN PRN BG <70, and no IV access Heparin Sodium (Porcine) 5,000 unit 09/26/25 21:00 09/27/25 08:11 Heparin Sod Inj 5000 Unit/Ml Vial SC 10/10/25 20:59 5,000 unit Q12HR GERHARD Administration Ceftriaxone Sodium/Dextrose 1 gm in 50 mls @ 100 mls/hr 09/26/25 16:29 09/27/25 13:07 Rocephin/D5w 1gm Iv Premix IV 10/03/25 16:28 100 mls/hr QDAY@1400 GERHARD Administration Insulin Human Lispro 0 unit 09/26/25 17:00 09/27/25 11:20 Insulin Lispro (Admelog) 1 Unit/0.01 Ml Unit SC 10/26/25 16:59 Not Given ACHS GERHARD Protocol Ondansetron HCl 4 mg 09/26/25 14:37 Ondansetron Inj 2 Mg/Ml Inj 2 Ml IVP 10/26/25 14:36 Q6H PRN NAUSEA OR VOMITING Protocol Pantoprazole Sodium 40 mg 09/27/25 09:00 09/27/25 08:11 Pantoprazole Inj 40 Mg Vial IVP 10/27/25 08:59 40 mg QDAY GERHARD Administration Sennosides 1 tab 09/27/25 09:00 09/27/25 08:11 Senna Tablet PO 10/27/25 08:59 1 tab QDAY GERHARD Administration Protocol Sodium Chloride 3 ml 09/26/25 14:03 09/26/25 14:27 Sodium Chloride Rt Ariadne 0.9% 3 Ml Nebu INH 10/26/25 14:02 3 ml PRN PRN Administration SOLN Plan A 55-year-old female who who is morbidly obese with significant past medical history of hypertension, diabetes mellitus, heart failure, chronic kidney disease, hyperlipidemia, chronic anemia, obstructive sleep apnea on CPAP, on oxygen, 2 L at home presented to the hospital with chief complaints of shortness of breath since 3 days. # Acute on chronic hypoxic hypercapnic respiratory failure # 2/2 Fluid overload - CHF Vs Acute on CKD # 2/2 Medication incompliance - Presented to the hospital with chief complaints of shortness of breath since 3 days - Reported 1 febrile episode 2 days before the hospital admission but denies cough, sputum production - Reported that she is not taking her medications since 5 days - Patient is using 2 L of oxygen at home as needed but noted to have SpO2 87% with 2 L nasal cannula and noted to have increased oxygen requirements - On auscultation, no abnormal breath sounds are appreciated as the patient is obese - Chest x-ray is done, noted to have vascular congestion but noted to have poor quality image Plan - Started on IV Lasix 40 mg IV twice daily - Strict input and output - Fluid restriction to 2000 mL - Continue oxygen - Nebulizations every 8 hourly scheduled - CPAP/BiPAP at bedtime - Started on ceftriaxone 1 g IV daily and Azithromycin in view of suspected underlying respiratory infection as patient reported febrile episode # Acute on chronic kidney disease versus CKD versus cardiorenal syndrome - Creatinine at the time of admission is 4.4, baseline creatinine in 2022 is 1.6 - Reported that she is following with a tourist guide in [place] but not on hemodialysis and reported that her GFR is less than 30% the last time she visited the doctor - Reported that she did not notice any changes in urine output Plan - Will continue to monitor renal functions - [employer] Tender, Dr. Cornell is consulted and recommended no need of dialysis as of now - Strict input and output monitoring - Avoid nephrotoxic medications and renally dose medications - Held lisinopril for now - Renal ultrasound is ordered, showed Atrophic left kidney # Hyperkalemia -Likely secondary to the ongoing kidney disease - Potassium at the time of admission is 6 -> 09/27, 5.9 - Patient is using Lokelma at home Plan - Patient was given Kayexalate 30 g once and started on Hydrochlorthiazide 12.5mg once daily - Repeat Renal panel is repeated in the afternoon #? CHF - Patient noted to have shortness of breath but no orthopnea and PND episodes - But patient reported that she had history of heart disease and is currently using aspirin, atorvastatin and carvedilol Plan - Lasix 40 mg IV twice daily - Fluid restriction - Strict intake and output - CPAP at bedtime - Echocardiogram is ordered, pending - Resumed aspirin, statin # Obstructive sleep apnea - Patient had history of obstructive sleep apnea and is using CPAP at night - CPAP/BiPAP at night # Diabetes mellitus, type II - Patient is using insulin at home Plan - HbA1c is ordered - 6.8% - Started on insulin sliding scale - Will adjust the insulin based on sugars - Hypoglycemic protocol in place # Hypertension - Blood pressure at the time of admission is 160/75 mmHg Plan - Held lisinopril in view of hyperkalemia and suspected SUZANNE - Started on Nifedipine 60 mg daily and Hydrochlorthiazide 12.5mg once daily Hospital Maintenance: Dispo: Telemetry DVT ppx: Heparin GI ppx: Protonix Diet: Renal IV lines: Peripheral Code status: Full code Patient plan of care was discussed with the attending physician, Dr. Michael Hooks, PGY2 Attending Provider Attestation/Addendum I have examined the patient, reviewed labs and imaging findings, discussed the case with the resident(s), and reviewed entered orders. I agree with the plan of care as outlined in this note, with these additional summaries/recommendations: Patient is a 55-year-old female with a medical history of DANYA, obesity, COPD, CHF, primary hypertension, hyperlipidemia, anxiety, CKD, and hyperkalemia presents to [facility] emergency department on 09/26/2025 with chief complaint of shortness of breath. Patient seen at bedside. Patient diagnosed with acute on chronic hypercapnic respiratory failure. Most likely secondary to fluid overload from CKD versus less likely CHF?. Patient does have a history of COPD although no wheezing noted. Continue IV Lasix. Strict I's and O's. Fluid restriction. Breathing treatments as needed. CPAP/BiPAP at night for history of DANYA. Patient diagnosed with SUZANNE on CKD. Possibly secondary to cardiorenal syndrome. Intractable Hyperkalemia also present. Patient given temporizing measures and Kayexalate. Follow-up repeat potassium. Consult in-house nephrology, recommendations appreciated. Avoid nephrotoxic agents and renally dose medications. Repeat renal panel in AM. Order echocardiogram. Cont. insulin sliding scale for diabetes mellitus type 2 with Accu-Cheks. Target blood sugar 140-180 while hospitalized. Order A1c. Continue home antihypertensives. Patient updated on the plan and agreement. All questions answered to satisfaction. Please see residents note for additional details and management. Dr. Michael MD
[2025-09-27] MEDS: ACETAMINOPHEN 325 MG TABLET 650 MG PO (20:50)
[2025-09-28] VITALS (17 sets, daily range): BP systolic 153–189; BP diastolic 63–103; PULSE 63–91; RESP 15–24; TEMP 36.1–36.7; O2SAT 93–100; BMI 57.7
[2025-09-28] MEDS: hydrALAZINE INJ 20 MG/ML VIAL 10 MG IVP (00:43)
[2025-09-28 05:42] LABS: Basophils # (Auto) 0.0 Thou/mm3 (0.0-0.2); Basophils % (Auto) 1 % (0-2.5); Eosinophils # (Auto) 0.1 Thou/mm3 (0.0-0.5); Eosinophils % (Auto) 2 % (0-10); Hematocrit 29.6 % (36.0-46.0); Hemoglobin 8.9 g/dL (12.0-16.0); Immature Granulocytes Auto 0.07 Thou/mm3 (0.00-0.00); Lymphocytes # (Auto) 1.0 Thou/mm3 (1.0-4.8); Lymphocytes % (Auto) 16 % (10-50); Mean Corpuscular HGB Conc 30.1 g/dl (31.0-37.0); Mean Corpuscular Hemoglobin 27.7 pg (25.0-35.0); Mean Corpuscular Volume 92 fL (80-100); Monocytes # (Auto) 0.6 Thou/mm3 (0.0-0.8); Monocytes % (Auto) 9 % (0-12); Neutrophils # (Auto) 4.3 Thou/mm3 (1.8-7.7); Neutrophils % (Auto) 71 % (37-80); Nucleated Red Blood Cell # 0.02 Thou/mm3 (0.00-0.00); Nucleated Red Blood Cell % 0 /100 WBC (0); Platelet Count 202 Thou/mm3 (140-440); RDW Standard Deviation 47.8 fL (36.4-46.3); Red Blood Count 3.21 Miln/mm3 (4.00-5.20); White Blood Count 6.0 Thou/mm3 (3.6-11.0)
[2025-09-28] MEDS: FUROSEMIDE INJ 10 MG/ML 4ML VIAL 40 MG IVP ×2 (05:46→18:15)
[2025-09-28] MEDS: ALBUTEROL/IPRATROPIUM (Duoneb) RT SOL 3 ML NEBU INH ×3 (06:25→22:59)
[2025-09-28 06:31] LABS: Alanine Aminotransferase 8 U/L (10-49); Albumin, Serum 3.5 gm/dL (3.5-5.0); Albumin/Globulin Ratio 1.6 (1.2-2.2); Alkaline Phosphatase 39 U/L (46-116); Anion Gap 9 (7-16); Aspartate Amino Transferase 13 U/L (0-34); BUN/Creatinine Ratio 14 Ratio (12-20); Bilirubin,Total 0.2 mg/dL (0.3-1.2); Blood Urea Nitrogen 52 mg/dL (9-23); Calcium 9.0 mg/dL (8.3-10.6); Calcium (Corrected) 9.4 mg/dL (8.5-10.1); Carbon Dioxide 27.1 mMol/L (20.0-31.0); Cardiac Risk Estimate 4.5 RATIO (3.7-5.6); Chloride 113 mMol/L (98-107); Cholesterol 98 mg/dL (132-200); Creatinine (Component) 3.8 mg/dL (0.6-1.3); Estimated Creatinine Clearance 25.1 mL/min (>60); Globulin 2.2 gm/dL (2.3-3.5); Glucose 93 mg/dL (74-106); HDL Cholesterol 22 mg/dL (40-60); LDL Cholesterol,Calculated 38 mg/dL (0-130); Magnesium 2.0 mg/dL (1.6-2.6); Osmolality,Calculated 310 (275-295); Potassium 5.0 mMol/L (3.4-5.1); Sodium 149 mMol/L (136-145); Total Protein 5.7 gm/dL (5.7-8.2); Triglycerides 191 mg/dL (30-150); eGFR 13 See Note
[2025-09-28] MEDS: SOD POLYSTYRENE SULFON SUSP 15 GM/60 ML BTL 30 GM PO (09:13)
[2025-09-28] MEDS: ASPIRIN EC 81 MG TABEC PO (09:14)
[2025-09-28] MEDS: SEVELAMER CARBONATE 800 MG TABLET PO ×3 (09:14→16:31)
[2025-09-28] MEDS: HEPARIN SOD INJ 5000 UNIT/ML VIAL SC ×2 (09:14→20:09)
[2025-09-28] MEDS: FAMOTIDINE 20 MG TABLET PO (09:15)
[2025-09-28] MEDS: NIFEdipine XL 30 MG TABCR 60 MG PO (09:15)
--- NOTE | 2025-09-28 09:42 | PC.SS ---
Addendum entered by Lucero Head 09/28/25 11:05: SS spoke to pt at bedside. Pt has no where to go right now for DC planning. SS informed her of need for a billable insurance for SNF short term stay. Prior to move to [place] pt had Medi-[employer]ilpi, pt wishes to get Medi-shilpi again. SS reached out to [place] financial glove operator, who will submit referral on behalf of pt request. Addendum entered by Lucero Head 09/28/25 09:58: SS spoke to Ml at [facility], who stated pt medi-shilpi is inactive and current insurance does not cover Skilled Needs at a SNF. Original Note: SS was informed pt wishes to go to [facility] for short term rehab. SS sent referral via [employer], pending response from [facility]>
--- NOTE | 2025-09-28 10:32 | ESPR_ITS ---
<Statement entered by Sasha Hazel MD - 09/28/25 16:15> Patient was seen and examined by me personally. I have directly supervised and reviewed documentation by the team resident and agree with its findings with any exceptions or additional findings as below. Plan of care was discussed with the attending, Dr. Rodriguez. Patient continues to be diuresed with good urine output, creatinine has improved from 4.1 to 3.8, suspect cardiorenal component since there was improvement with diuresis. Will continue with the same rate of Lasix 40 mg BID per Nephrology, also discontinued hydrochlorothiazide as it does not work with the patient's current kidney function. Pending echo. Patient will likely need to discharge with supplemental home oxygen. Patient does CPAP at home. Patient's BP still uncontrolled so added hydralazine 50 mg PO TID. Sasha Hazel, PGY-3 Documentation for date of: 09/28/25 Subjective Subjective Interval history: No overnight events. Patient was examined at bedside; they appear A&Ox3 and in NAD. Vitals/labs today significant for BP 165/71, hemoglobin 8.9, sodium 146- >149, potassium 5.0, BUN 52, creatinine 4.1->3.8, lipid panel showed slightly high triglycerides and low total cholesterol. Physical exam was non- contributory. Patient continues to be treated with Lasix 40 mg BID per Nephrology's (Dr. Cornell) recommendations which seems to have improved her renal function today, suggesting a cardiorenal component of her initial SUZANNE. Nephrology has also discouraged the use of HCTZ due to her eGFR being well below 30. In patients like this, HCTZ is often ineffective because the drug requires adequate glomerular filtration to deliver itself to the intended site of action at the sodium-chloride symporters of the distal convoluted tubule of the nephron. Hydralazine 50 mg PO TID was also started today due to patient's hypertension remaining poorly-controlled and patient is still pending echo to evaluate cardiac function. Upon discharge, patient will likely require home oxygen as she uses CPAP at home but is still at risk of repeat acute respiratory failure. Exam Vital Signs Temp Pulse Resp BP Pulse Ox O2 Del Method O2 Flow Rate 98.0 F 71 24 H 189/103 H 95 Nasal Cannula 4 09/28/25 08:00 09/28/25 09:15 09/28/25 08:00 09/28/25 09:15 09/28/25 08:00 09/28/25 08:00 09/28/25 08:00 FiO2 4 09/27/25 06:00 Narrative Exam General: Awake. Morbidly obese HEENT: Normocephalic, atraumatic, mucous membranes moist. Heart: Regular rate and rhythm, no murmurs. Lungs: Clear to auscultation with no wheezing or crackles. Abdomen: Soft, nondistended, nontender, positive bowel sounds. ?No guarding or rebound tenderness. Neurologic: Alert and oriented x3, no gross neurological deficit, and patient able to move all 4 extremities. Extremities: Bilateral 1+ pitting pedal edema Skin: No rash or ecchymoses. Objective Labs 09/28/25 05:17 09/28/25 05:17 Labs: Laboratory Results - last 24 hr 09/27/25 09/28/25 12:44 05:17 WBC 6.0 RBC 3.21 L Hgb 8.9 L Hct 29.6 L MCV 92 MCH 27.7 MCHC 30.1 L RDW Std Deviation 47.8 H Plt Count 202 Neut % (Auto) 71 Lymph % (Auto) 16 [place] % (Auto) 9 Eos % (Auto) 2 Baso % (Auto) 1 Neut # (Auto) 4.3 Lymph # (Auto) 1.0 [place] # (Auto) 0.6 Eos # (Auto) 0.1 Baso # (Auto) 0.0 Immature Gran # (Auto) 0.07 H Absolute Nucleated RBC 0.02 H Immature Gran % 1 H Nucleated RBC % 0 Sodium 146 H 149 H Potassium 4.9 D 5.0 Chloride 111 H 113 H Carbon Dioxide 25.5 27.1 Anion Gap 10 9 BUN 49 H 52 H Creatinine 4.1 H* 3.8 H Estim Creat Clear Calc 23.4 L 25.1 L eGFR 12 L* 13 L* BUN/Creatinine Ratio 12 14 Glucose 135 H 93 Calculated Osmolality 305 H 310 H Calcium 9.3 9.0 Corrected Calcium 9.3 9.4 Phosphorus 5.6 H Magnesium 2.0 Total Bilirubin 0.2 L AST 13 ALT 8 L Alkaline Phosphatase 39 L Total Protein 5.7 Albumin 4.0 3.5 D Globulin 2.2 L Albumin/Globulin Ratio 1.6 Triglycerides 191 H Cholesterol 98 L LDL Cholesterol, Calc 38 HDL Cholesterol 22 L Cholesterol/HDL Ratio 4.5 ABG Interpretation ABG results: 09/26/25 12:00 VBG pH 7.21 L VBG pCO2 59 H VBG pO2 48 VBG Base Excess -5 L Quality Measures Quality Measures none Assessment & Plan Assessment Current Active Medications: Generic Name Dose Route Start Last Admin Trade Name Tateq PRN Reason Stop Dose Admin Acetaminophen 650 mg 09/27/25 13:01 09/27/25 20:50 Acetaminophen 325 Mg Tablet PO 10/26/25 14:36 650 mg Q6H PRN Administration Fever >100.4 Albuterol/Ipratropium 3 ml 09/26/25 23:00 09/28/25 06:25 Albuterol/Ipratropium (Duoneb) Rt Ariadne 3 Ml Nebu INH 10/26/25 22:59 3 ml Q8HRRT GERHARD Administration Aspirin 81 mg 09/28/25 09:00 09/28/25 09:14 Aspirin Ec 81 Mg Tabec PO 10/28/25 08:59 81 mg QDAY GERHARD Administration Atorvastatin Calcium 80 mg 09/28/25 21:00 Atorvastatin Calcium 20 Mg Tablet PO 10/28/25 20:59 QPM GERHARD Buspirone HCl 7.5 mg 09/28/25 09:00 09/28/25 09:14 Buspirone Hcl 5 Mg Tablet PO 10/28/25 08:59 7.5 mg QDAY GERHARD Administration Carvedilol 25 mg 09/28/25 09:00 09/28/25 09:15 Carvedilol 12.5 Mg Tablet PO 10/28/25 08:59 25 mg BID GERHARD Administration Dextrose 25 ml 09/26/25 16:39 Dextrose 50%-Water Inj 50 Ml Syringe IV 10/26/25 16:38 Q15MIN PRN BG 50-70 responsive npo pt Dextrose 50 ml 09/26/25 16:39 Dextrose 50%-Water Inj 50 Ml Syringe IV 10/26/25 16:38 Q15MIN PRN BG <50 OR BG <70 & pt unresponsive Famotidine 20 mg 09/28/25 09:15 09/28/25 09:15 Famotidine 20 Mg Tablet PO 10/28/25 09:14 20 mg QDAY GERHARD Administration Furosemide 40 mg 09/28/25 18:00 Furosemide Inj 10 Mg/Ml 4ml Vial IVP 10/28/25 17:59 BIDD GERHARD Glucagon 1 mg 09/26/25 16:39 Glucagon Inj 1 Mg Vial IM Q15MIN PRN BG <70, and no IV access Heparin Sodium (Porcine) 5,000 unit 09/26/25 21:00 09/28/25 09:14 Heparin Sod Inj 5000 Unit/Ml Vial SC 10/10/25 20:59 5,000 unit Q12HR GERHARD Administration Ceftriaxone Sodium/Dextrose 1 gm in 50 mls @ 100 mls/hr 09/26/25 16:29 09/27/25 13:07 Rocephin/D5w 1gm Iv Premix IV 10/03/25 16:28 100 mls/hr QDAY@1400 GERHARD Administration Insulin Human Lispro 0 unit 09/26/25 17:00 09/28/25 07:29 Insulin Lispro (Admelog) 1 Unit/0.01 Ml Unit SC 10/26/25 16:59 Not Given ACHS GERHARD Protocol Isosorbide Mononitrate 60 mg 09/28/25 10:30 Isosorbide Er Mononitrate 30 Mg Tabcr PO 10/28/25 10:29 QDAY GERHARD Nifedipine 60 mg 09/28/25 09:00 09/28/25 09:15 Nifedipine Xl 30 Mg Tabcr PO 10/28/25 08:59 60 mg QDAY GERHADR Administration Ondansetron HCl 4 mg 09/26/25 14:37 Ondansetron Inj 2 Mg/Ml Inj 2 Ml IVP 10/26/25 14:36 Q6H PRN NAUSEA OR VOMITING Protocol Sennosides 1 tab 09/27/25 09:00 09/28/25 09:14 Senna Tablet PO 10/27/25 08:59 1 tab QDAY GERHARD Administration Protocol Sevelamer Carbonate 800 mg 09/28/25 08:00 09/28/25 09:14 Sevelamer Carbonate 800 Mg Tablet PO 10/28/25 07:59 800 mg TIDWM GERHARD Administration Sodium Chloride 3 ml 09/26/25 14:03 09/26/25 14:27 Sodium Chloride Rt Ariadne 0.9% 3 Ml Nebu INH 10/26/25 14:02 3 ml PRN PRN Administration SOLN Plan A 55-year-old female who who is morbidly obese with significant past medical history of hypertension, diabetes mellitus, heart failure, chronic kidney disease, hyperlipidemia, chronic anemia, obstructive sleep apnea on CPAP, on oxygen, 2 L at home presented to the hospital with chief complaints of shortness of breath since 3 days. # Acute on chronic hypoxic hypercapnic respiratory failure # 2/2 Fluid overload - CHF Vs Acute on CKD # 2/2 Medication non-compliance - Presented to the hospital with chief complaints of shortness of breath since 3 days - Reported 1 febrile episode 2 days before the hospital admission but denies cough, sputum production - Reported that she is not taking her medications since 5 days - Patient is using 2 L of oxygen at home as needed but noted to have SpO2 87% with 2 L nasal cannula and noted to have increased oxygen requirements - On auscultation, no abnormal breath sounds are appreciated as the patient is obese - Chest x-ray is done, noted to have vascular congestion but noted to have poor quality image Plan - Lasix 40 mg IV twice daily - Strict input and output - Fluid restriction to 2000 mL - Continue oxygen - Nebulizations every 8 hourly scheduled - CPAP/BiPAP at bedtime - Rocephin 1 g IV qD [09/26--] - s/p Azithromycin 500 mg IV qD [09/26-09/28] # Acute on chronic kidney disease versus CKD versus cardiorenal syndrome - Creatinine at the time of admission is 4.4, baseline creatinine in 2022 is 1.6 - Reported that she is following with a fret saw operator in [place] but not on hemodialysis and reported that her GFR is less than 30% the last time she visited the doctor - Reported that she did not notice any changes in urine output - 09/28, creatinine 4.1->3.8 while being diuresed with Lasix 40 mg, suggesting a cardiorenal component of initial SUZANNE Plan - Sevelamer 800 mg PO TIDWM - Will continue to monitor renal functions - Vehicle Technician, Dr. Cornell is consulted and recommended no need of dialysis as of now - Strict input and output monitoring - Avoid nephrotoxic medications and renally dose medications - Renal ultrasound is ordered, showed Atrophic left kidney # Hyperkalemia -Likely secondary to the ongoing kidney disease - Potassium at the time of admission is 6 -> 09/27, 5.9 - Patient is using Lokelma at home Plan - Patient was given Kayexalate 30 g once and started on Hydrochlorthiazide 12.5mg once daily - Repeat Renal panel is repeated in the afternoon #? CHF - Patient noted to have shortness of breath but no orthopnea and PND episodes - But patient reported that she had history of heart disease and is currently using aspirin, atorvastatin and carvedilol Plan - Pending echocardiogram - Lasix 40 mg IV twice daily - Fluid restriction - Strict intake and output - CPAP at bedtime - Atorvastatin 80 mg PO qHS - Aspirin 81 mg PO qD - Coreg 25 mg PO BID - Isosorbide mononitrate 60 mg PO qD # Obstructive sleep apnea - Patient had history of obstructive sleep apnea and is using CPAP at night Rx: - CPAP/BiPAP at night # Diabetes mellitus, type II - Patient is using insulin at home Plan - HbA1c is ordered - 6.8% - Started on insulin sliding scale - Will adjust the insulin based on sugars - Hypoglycemic protocol in place # Hypertension - Blood pressure at the time of admission is 160/75 mmHg Plan - Hydralazine 50 mg PO TID - Coreg 25 mg PO BID - Nifedipine 90 mg PO qD # Morbid obesity, class III # Hyperlipidemia Patient BMI 57.7 09/28 lipid panel showed high triglycerides 191, low cholesterol 98, LDL 38, low HDL 22 Rx: - Atorvastatin 80 mg PO qHS # Anxiety Takes home Buspar 7.5 mg PO qD Rx: - Buspar 7.5 mg PO qD Hospital Maintenance: Dispo: Telemetry DVT ppx: Heparin GI ppx: Protonix Diet: Renal IV lines: Peripheral Code status: Full code Patient plan of care was discussed with the attending physician, Dr. Michael Sky, DO PGY-1 Attending Provider Attestation/Addendum I have examined the patient, reviewed labs and imaging findings, discussed the case with the resident(s), and reviewed entered orders. I agree with the plan of care as outlined in this note, with these additional summaries/recommendations: Patient is a 55-year-old female with a medical history of DANYA, obesity, COPD, CHF, primary hypertension, hyperlipidemia, anxiety, CKD, and hyperkalemia presents to [facility] emergency department on 09/26/2025 with chief complaint of shortness of breath. Patient seen at bedside. No acute overnight events. Patient diagnosed with acute on chronic hypercapnic respiratory failure. Most likely secondary to fluid overload from CKD versus CHF?. Patient does have a history of COPD although no wheezing noted and unlikely COPD exacerbation. She does appear to chronically retain CO2. VBG on admission showed minimal hypercapnia which is below patient's baseline. Continue IV Lasix. Strict I's and O's. Fluid restriction. Breathing treatments as needed. CPAP/BiPAP at night for history of DANYA. Patient diagnosed with SUZANNE on CKD. Possibly secondary to cardiorenal syndrome. Echocardiogram ordered. Intractable Hyperkalemia now resolving. S/P temporizing measures and Kayexalate. In-house nephrology following, recommendations appreciated. Avoid nephrotoxic agents and renally dose medications. Repeat renal panel in AM. Cont. insulin sliding scale for diabetes mellitus type 2 with Accu-Cheks. Target blood sugar 140-180 while hospitalized. A1c 6.8%. Continue home antihypertensives. Patient updated on the plan and agreement. All questions answered to satisfaction. Please see residents note for additional details and management. Dr. Michael MD
[2025-09-28] MEDS: ISOSORBIDE ER MONONITRATE 30 MG TABCR 60 MG PO (10:56)
[2025-09-28] MEDS: cefTRIAXone/D5w 1gm IV premix 1 GM/50 ML BAG IV (13:40)
--- NOTE | 2025-09-28 14:44 | PC.SS ---
Rounding: Pt pending PT and ECHO, DC plan pending PT eval
[2025-09-28] MEDS: ACETAMINOPHEN 325 MG TABLET 650 MG PO (15:31)
[2025-09-28] MEDS: NIFEdipine XL 30 MG TABCR PO (16:32)
[2025-09-28] MEDS: ATORVASTATIN CALCIUM 20 MG TABLET 80 MG PO (20:07)
--- NOTE | 2025-09-28 21:43 | ESCONSULT_ITS ---
RE: ANNETTE BUTCHER : 1970 DATE OF CONSULTATION: 09/28/2025 REASON FOR REFERRAL: Acute kidney injury on chronic kidney disease. REFERRING PHYSICIAN: Mark Hooks MD. HISTORY OF PRESENT ILLNESS: This patient is a 55-year-old -[place] woman with past medical history significant for insulin-dependent diabetes, hypertension, obstructive sleep apnea on CPAP, and stage IIIB CKD, whose baseline serum creatinine is around 1.6-1.8 mg/dL at least since 2022, who presented to the hospital on 09/26/2025 with increasing shortness of breath. The patient told me that she has been short of breath for about a week now. The patient came to visit her family in [place] after her brother . She and her mom live in [place], [place] and told me that after the of her brother they decided to settle here in [place]. The patient said that he started getting more swollen lately and became more short of breath. She decided to come to emergency room as her shortness of breath has become worse. While in the emergency room, she was found with low O2 sat of 87%. Further evaluation revealed BUN of 52 and creatinine of 4.4. Her potassium was also elevated at 6. While in ED, she was given furosemide 40 mg x1, nitroglycerin patch, and Kayexalate. She was eventually admitted for management of her acute kidney injury and hypoxia. She said that she used to see a vice president for philanthropy in [place], who told her that everything is okay with her kidneys. She also sees a plastic cablemaking machine operator in [place], who told her that she has heart failure. HOME MEDICATIONS: Include: 1. Amlodipine 10 mg daily. 2. Brovana. 3. Aspirin 81 mg daily. 4. Atorvastatin 80 mg daily. 5. Buspirone. 6. Carvedilol 25 mg daily. 7. Cyclobenzaprine 10 mg b.i.d. 8. Hydrochlorothiazide 25 mg t.i.d. 9. Lantus 25 units of SQ at bedtime. 10. Lidocaine patch. 11. Isosorbide mononitrate. 12. Lisinopril 20 mg daily. 13. Methocarbamol 750 mg t.i.d. 14. Tizanidine 2 mg q. 8. The patient upon admission was started on IV Lasix 40 mg daily and her leg swelling improved. Meanwhile, creatinine started to improve from 4.4 on admission, went down to 4.3-4.2, and now at 3.8. She said that she is feeling much better; however, today blood pressure crept up to 180s/103. She also told me today that she plans to stay in town and get herself a local primary care physician and plastic cablemaking machine operator. PAST MEDICAL HISTORY: As previously mentioned, insulin-dependent diabetes, morbid obesity, hypertension, generalized body pain, obstructive sleep apnea syndrome, on oxygen; congestive heart failure, stage IIIB CKD with baseline serum creatinine anywhere from 1.6-1.8 mg/dL. PAST SURGICAL HISTORY: None. CURRENT MEDICATIONS: 1. Pantoprazole 40 mg IV daily. 2. Hydrochlorothiazide 25 mg daily. 3. Methocarbamol 750 mg p.o. t.i.d. 4. Albuterol nebulization. 5. Atorvastatin 80 mg daily. 6. Aspirin 81 mg daily. 7. BuSpar 7.5 mg p.o. daily. 8. Carvedilol 25 mg b.i.d. 9. Ceftriaxone 1 g IV daily. 10. Furosemide 40 mg IV daily. 11. Pantoprazole 20 mg IV daily. 12. Heparin 5000 units subcu q. 12. 13. Hydralazine 10 mg IV x1. 14. Lispro sliding scale. 15. Nifedipine 60 mg p.o. x1. 16. Sevelamer carbonate 800 mg p.o. t.i.d. with meals. PHYSICAL EXAMINATION: GENERAL: She is awake, alert, and oriented. VITAL SIGNS: Blood pressure of 189/103, heart rate of 91, temperature 98.1, respiratory rate of 22. HEENT: Anicteric sclerae, normocephalic. NECK: Supple, no JVD. CHEST AND LUNGS: Some expansion, clear breath sounds. CARDIAC: Without murmur. ABDOMEN: Soft and nontender. EXTREMITIES: No edema. LABORATORY DATA: Sodium 149, potassium 5, chloride 113, CO2 27.1, BUN 52, creatinine 3.8, calcium 9, BUN 52, creatinine 3.8, albumin 3.5, glucose 93, calcium 9, phosphorus 5.6. Hemoglobin 8.9, WBC 6000, platelet count 202,000. DIAGNOSTIC STUDIES: Chest x-ray: Moderate enlargement cardiac contour, prominent vascular congestion, and perihilar edema. Kidney ultrasound: Right kidney measuring 13.7 cm with renal cortex of 2.1 cm; left kidney was not visualized. ASSESSMENT: 1. Acute kidney injury most likely due to cardiorenal syndrome, now improving. 2. Stage IIIB chronic kidney disease most likely secondary to diabetic nephropathy with proteinuria and possibly secondary to hypertension. 4. Anemia of chronic disease. 5. Proteinuria. 6. Uncontrolled hypertension. 7. Obstructive sleep apnea syndrome. 8. Hypoxia most likely secondary to decompensated congestive heart failure. 9. Morbid obesity. 10. Hyperkalemia, now improved, most likely secondary to MATA inhibitor and acute kidney injury. PLAN: I agree with current management. I agree with resumption of carvedilol and discontinuation of lisinopril for now. I will stop her hydrochlorothiazide as it is not effective on patients whose eGFR is 25 or less. I will also change her pantoprazole, which is usually associated with SUAZNNE and CKD, to Pepcid 20 mg p.o. daily. I will also stop her methocarbamol due to her low kidney function. I agree with continuing her nifedipine, which can be increased further to 90 mg per day if needed for blood pressure control. I also agree with starting her on hydralazine 50 mg t.i.d. I also increased her furosemide 40 mg to b.i.d. I noticed that she is more hypernatremic and if she becomes more euvolemic with improved blood pressure control, then we can change her Lasix to oral Lasix 40 mg daily. At this point, there is no need for dialysis given that her kidney function has started to improve. I will avoid giving her an erythropoietin- stimulating agent due to her uncontrolled hypertension. Continue monitoring kidney function, blood pressure daily. If all blood pressure medications have reached its maximum doses, then we can also start her on clonidine for blood pressure control. Our goal is to keep her blood pressure around 150s-160s systolically and not to bring it down too low as it can cause relative hypoperfusion with sudden decrease in blood pressure. I will monitor her closely with you. DT: 21:10:03 TT: 21:41:00 Ref: [id number] - TID: [id number] [facility]
[2025-09-29] VITALS (15 sets, daily range): BP systolic 138–167; BP diastolic 57–90; PULSE 57–74; RESP 12–22; TEMP 36.3–36.6; O2SAT 92–99; BMI 54.6
[2025-09-29 05:21] LABS: Basophils # (Auto) 0.0 Thou/mm3 (0.0-0.2); Basophils % (Auto) 1 % (0-2.5); Eosinophils # (Auto) 0.2 Thou/mm3 (0.0-0.5); Eosinophils % (Auto) 4 % (0-10); Hematocrit 28.7 % (36.0-46.0); Immature Granulocytes Auto 0.04 Thou/mm3 (0.00-0.00); Lymphocytes # (Auto) 0.8 Thou/mm3 (1.0-4.8); Lymphocytes % (Auto) 18 % (10-50); Mean Corpuscular HGB Conc 30.0 g/dl (31.0-37.0); Mean Corpuscular Hemoglobin 27.7 pg (25.0-35.0); Mean Corpuscular Volume 93 fL (80-100); Monocytes # (Auto) 0.4 Thou/mm3 (0.0-0.8); Monocytes % (Auto) 10 % (0-12); Neutrophils # (Auto) 2.9 Thou/mm3 (1.8-7.7); Neutrophils % (Auto) 67 % (37-80); Nucleated Red Blood Cell # 0.00 Thou/mm3 (0.00-0.00); Nucleated Red Blood Cell % 0 /100 WBC (0); Platelet Count 204 Thou/mm3 (140-440); RDW Standard Deviation 47.9 fL (36.4-46.3); Red Blood Count 3.10 Miln/mm3 (4.00-5.20); White Blood Count 4.4 Thou/mm3 (3.6-11.0)
[2025-09-29 05:30] LABS: Hemoglobin 8.6 g/dL (12.0-16.0)
[2025-09-29] MEDS: FUROSEMIDE INJ 10 MG/ML 4ML VIAL 40 MG IVP (05:46)
[2025-09-29 05:55] LABS: Alanine Aminotransferase < 7 U/L (10-49); Albumin, Serum 3.2 gm/dL (3.5-5.0); Albumin/Globulin Ratio 1.4 (1.2-2.2); Alkaline Phosphatase 37 U/L (46-116); Anion Gap 11 (7-16); Aspartate Amino Transferase 13 U/L (0-34); BUN/Creatinine Ratio 14 Ratio (12-20); Bilirubin,Total 0.2 mg/dL (0.3-1.2); Blood Urea Nitrogen 49 mg/dL (9-23); Calcium 8.5 mg/dL (8.3-10.6); Calcium (Corrected) 9.1 mg/dL (8.5-10.1); Carbon Dioxide 28.5 mMol/L (20.0-31.0); Cardiac Risk Estimate 4.4 RATIO (3.7-5.6); Chloride 111 mMol/L (98-107); Cholesterol 96 mg/dL (132-200); Creatinine (Component) 3.4 mg/dL (0.6-1.3); Estimated Creatinine Clearance 27.0 mL/min (>60); Globulin 2.3 gm/dL (2.3-3.5); Glucose 99 mg/dL (74-106); HDL Cholesterol 22 mg/dL (40-60); LDL Cholesterol,Calculated 32 mg/dL (0-130); Magnesium 1.8 mg/dL (1.6-2.6); Osmolality,Calculated 311 (275-295); Potassium 4.1 mMol/L (3.4-5.1); Sodium 150 mMol/L (136-145); Total Protein 5.5 gm/dL (5.7-8.2); Triglycerides 209 mg/dL (30-150); eGFR 15 See Note
[2025-09-29] MEDS: ALBUTEROL/IPRATROPIUM (Duoneb) RT SOL 3 ML NEBU INH ×3 (07:09→23:55)
[2025-09-29] MEDS: SEVELAMER CARBONATE 800 MG TABLET PO ×3 (07:41→17:48)
[2025-09-29] MEDS: FAMOTIDINE 20 MG TABLET PO (08:57)
[2025-09-29] MEDS: NIFEdipine XL 30 MG TABCR 90 MG PO (08:57)
[2025-09-29] MEDS: ASPIRIN EC 81 MG TABEC PO (08:58)
[2025-09-29] MEDS: ISOSORBIDE ER MONONITRATE 30 MG TABCR 60 MG PO (08:58)
[2025-09-29] MEDS: HEPARIN SOD INJ 5000 UNIT/ML VIAL SC (08:59)
--- NOTE | 2025-09-29 10:03 | PC.SS ---
Addendum entered by Grace Hodge 09/29/25 15:47: SS follow up note; SS contacted [facility] and spoke to Ml, she informed SS that the only services they are able to provide is Direct care only which are done only in the clinic and are not able to assist elsewhere. SS will stand by for further needs. Addendum entered by Grace Hodge 09/29/25 15:31: SS follow up note; SS was contacted by patients nurse in regards to [facility] office requesting proof of admission. SS sent requested information to [facility] office with SS contact information. Addendum entered by Grace Hodge 09/29/25 14:18: SS contacted Sabrina the financial counselor and she informed SS she spoke to patient and patient's sister, Natalie Hong they informed the patient that they were going top transfer everything to [facility] and Medical should be active in a few days. Patient's sister, Natalie informed SS if SS could fax requested information to [facility] office. SS faxed patient's home address, and contact number to [phone]. SS adviced patient and sister to contact [facility] office to clarify when insurance should be established or where are they at in the process. SS will stand by for further needs. Original Note: SS contacted Sabrina the financial counselor in regards to checking status on establishing patient with [employer]. Sabrina reported patient was suppose to apply for [employer] with [employer]. SS followed up with patient in regards to following up with [employer] yesterday. Patient reported that [facility] informed her that patient codes should be coming in tomorrow. SS attempted to contact Sabrina in regards to what codes patient is referring to. SS left voicemail.
--- NOTE | 2025-09-29 12:05 | ESPR_ITS ---
<Statement entered by Sasha Hazel MD - 09/29/25 16:35> Patient was seen and examined by me personally. I have directly supervised and reviewed documentation by the team resident and agree with its findings with any exceptions or additional findings as below. Plan of care was discussed with the attending, Dr. Mohr. Patient was seen at bedside this morning, doing well with oxygen weaned down to 2-3 L. Sodium is uptrending, therefore held Lasix since this morning. Will recheck CMP tomorrow morning. Pending home oxygen approval otherwise for discharge home. Sasha Hazel, PGY-3 Documentation for date of: 09/29/25 Subjective Subjective Interval history: No overnight events. Patient was examined at bedside; they appear A&Ox3 and in NAD. Vitals/labs today significant for BP 147/70, hemoglobin 8.6, sodium 150, creatinine 3.8->3.4. Physical exam was non-contributory. Overall, patient seems to be clinically improving and breathing fine after supplemental oxygen was weaned down to 2-3 L. Lasix was held this morning due to patient's increasing hypernatremia, suggesting that she is likely getting over-diuresed. However, continued diuresis seems to still be improving her SUZANNE. Per Nephrology recommendations, patient has also been restarted on Coreg 25 mg PO BID. Echocardiogram pending. She will likely require home oxygen approval before being discharged home but is having insurance issues due to being from [place] and not [place]. Exam Vital Signs Temp Pulse Resp BP Pulse Ox O2 Del Method O2 Flow Rate 97.3 F 66 19 167/65 H 92 L Nasal Cannula 3 09/29/25 08:00 09/29/25 08:58 09/29/25 08:00 09/29/25 08:58 09/29/25 08:00 09/29/25 08:00 09/29/25 08:00 FiO2 4 09/27/25 06:00 Narrative Exam General: Awake. Morbidly obese HEENT: Normocephalic, atraumatic, mucous membranes moist. Heart: Regular rate and rhythm, no murmurs. Lungs: Clear to auscultation with no wheezing or crackles. Abdomen: Soft, nondistended, nontender, positive bowel sounds. ?No guarding or rebound tenderness. Neurologic: Alert and oriented x3, no gross neurological deficit, and patient able to move all 4 extremities. Extremities: Bilateral 1+ pitting pedal edema Skin: No rash or ecchymoses. Objective Labs 09/29/25 05:00 09/29/25 05:00 Labs: Laboratory Results - last 24 hr 09/29/25 05:00 WBC 4.4 RBC 3.10 L Hgb 8.6 L Hct 28.7 L MCV 93 MCH 27.7 MCHC 30.0 L RDW Std Deviation 47.9 H Plt Count 204 Neut % (Auto) 67 Lymph % (Auto) 18 Laurens % (Auto) 10 Eos % (Auto) 4 Baso % (Auto) 1 Neut # (Auto) 2.9 Lymph # (Auto) 0.8 L Laurens # (Auto) 0.4 Eos # (Auto) 0.2 Baso # (Auto) 0.0 Immature Gran # (Auto) 0.04 H Absolute Nucleated RBC 0.00 Immature Gran % 1 H Nucleated RBC % 0 Sodium 150 H Potassium 4.1 D Chloride 111 H Carbon Dioxide 28.5 Anion Gap 11 BUN 49 H Creatinine 3.4 H Estim Creat Clear Calc 27.0 L eGFR 15 L BUN/Creatinine Ratio 14 Glucose 99 Calculated Osmolality 311 H Calcium 8.5 Corrected Calcium 9.1 Magnesium 1.8 Total Bilirubin 0.2 L AST 13 ALT < 7 L Alkaline Phosphatase 37 L Total Protein 5.5 L Albumin 3.2 L Globulin 2.3 Albumin/Globulin Ratio 1.4 Triglycerides 209 H Cholesterol 96 L LDL Cholesterol, Calc 32 HDL Cholesterol 22 L Cholesterol/HDL Ratio 4.4 ABG Interpretation ABG results: 09/26/25 12:00 VBG pH 7.21 L VBG pCO2 59 H VBG pO2 48 VBG Base Excess -5 L Quality Measures Quality Measures none Assessment & Plan Assessment Current Active Medications: Generic Name Dose Route Start Last Admin Trade Name Freq PRN Reason Stop Dose Admin Acetaminophen 650 mg 09/27/25 13:01 09/28/25 15:31 Acetaminophen 325 Mg Tablet PO 10/26/25 14:36 650 mg Q6H PRN Administration Fever >100.4 Albuterol/Ipratropium 3 ml 09/26/25 23:00 09/29/25 07:09 Albuterol/Ipratropium (Duoneb) Rt Ariadne 3 Ml Nebu INH 10/26/25 22:59 3 ml Q8HRRT GERHARD Administration Aspirin 81 mg 09/28/25 09:00 09/29/25 08:58 Aspirin Ec 81 Mg Tabec PO 10/28/25 08:59 81 mg QDAY GERHARD Administration Atorvastatin Calcium 80 mg 09/28/25 21:00 09/28/25 20:07 Atorvastatin Calcium 20 Mg Tablet PO 10/28/25 20:59 80 mg QPM GERHARD Administration Buspirone HCl 7.5 mg 09/28/25 09:00 09/29/25 08:58 Buspirone Hcl 5 Mg Tablet PO 10/28/25 08:59 7.5 mg QDAY GERHARD Administration Carvedilol 25 mg 09/28/25 09:00 09/29/25 08:58 Carvedilol 12.5 Mg Tablet PO 10/28/25 08:59 25 mg BID GERHARD Administration Dextrose 25 ml 09/26/25 16:39 Dextrose 50%-Water Inj 50 Ml Syringe IV 10/26/25 16:38 Q15MIN PRN BG 50-70 responsive npo pt Dextrose 50 ml 09/26/25 16:39 Dextrose 50%-Water Inj 50 Ml Syringe IV 10/26/25 16:38 Q15MIN PRN BG <50 OR BG <70 & pt unresponsive Famotidine 20 mg 09/28/25 09:15 09/29/25 08:57 Famotidine 20 Mg Tablet PO 10/28/25 09:14 20 mg QDAY GERHARD Administration Furosemide 40 mg 09/28/25 18:00 09/29/25 05:46 Furosemide Inj 10 Mg/Ml 4ml Vial IVP 10/28/25 17:59 40 mg On Hold: 09/29/25 08:18 BIDD GERHARD Administration Glucagon 1 mg 09/26/25 16:39 Glucagon Inj 1 Mg Vial IM Q15MIN PRN BG <70, and no IV access Heparin Sodium (Porcine) 5,000 unit 09/26/25 21:00 09/29/25 08:59 Heparin Sod Inj 5000 Unit/Ml Vial SC 10/10/25 20:59 5,000 unit Q12HR GERHARD Administration Hydralazine HCl 50 mg 09/28/25 22:00 09/29/25 05:46 Hydralazine Hcl 25 Mg Tablet PO 10/28/25 21:59 50 mg TID GERHARD Administration Ceftriaxone Sodium/Dextrose 1 gm in 50 mls @ 100 mls/hr 09/26/25 16:29 09/28/25 13:40 Rocephin/D5w 1gm Iv Premix IV 10/03/25 16:28 100 mls/hr QDAY@1400 GERHARD Administration Insulin Human Lispro 0 unit 09/26/25 17:00 09/29/25 11:17 Insulin Lispro (Admelog) 1 Unit/0.01 Ml Unit SC 10/26/25 16:59 Not Given ACHS GERHARD Protocol Isosorbide Mononitrate 60 mg 09/28/25 10:30 09/29/25 08:58 Isosorbide Er Mononitrate 30 Mg Tabcr PO 10/28/25 10:29 60 mg QDAY GERHARD Administration Nifedipine 90 mg 09/29/25 09:00 09/29/25 08:57 Nifedipine Xl 30 Mg Tabcr PO 10/29/25 08:59 90 mg QDAY GERHARD Administration Ondansetron HCl 4 mg 09/26/25 14:37 Ondansetron Inj 2 Mg/Ml Inj 2 Ml IVP 10/26/25 14:36 Q6H PRN NAUSEA OR VOMITING Protocol Sennosides 1 tab 09/27/25 09:00 09/29/25 08:58 Senna Tablet PO 10/27/25 08:59 1 tab QDAY GERHARD Administration Protocol Sevelamer Carbonate 800 mg 09/28/25 08:00 09/29/25 11:00 Sevelamer Carbonate 800 Mg Tablet PO 10/28/25 07:59 800 mg TIDWM GERHARD Administration Sodium Chloride 3 ml 09/26/25 14:03 09/26/25 14:27 Sodium Chloride Rt Ariadne 0.9% 3 Ml Nebu INH 10/26/25 14:02 3 ml PRN PRN Administration SOLN Plan A 55-year-old female who who is morbidly obese with significant past medical history of hypertension, diabetes mellitus, heart failure, chronic kidney disease, hyperlipidemia, chronic anemia, obstructive sleep apnea on CPAP, on oxygen, 2 L at home presented to the hospital with chief complaints of shortness of breath since 3 days. # Acute on chronic hypoxic hypercapnic respiratory failure # 2/2 Fluid overload - CHF Vs Acute on CKD # 2/2 Medication non-compliance - Presented to the hospital with chief complaints of shortness of breath since 3 days - Reported 1 febrile episode 2 days before the hospital admission but denies cough, sputum production - Reported that she is not taking her medications since 5 days - Patient is using 2 L of oxygen at home as needed but noted to have SpO2 87% with 2 L nasal cannula and noted to have increased oxygen requirements - On auscultation, no abnormal breath sounds are appreciated as the patient is obese - Chest x-ray is done, noted to have vascular congestion but noted to have poor quality image Plan - Lasix 40 mg IV twice daily (held today due to hyponatremia 146->150) - Strict input and output - Fluid restriction to 2000 mL - Continue oxygen - Nebulizations every 8 hourly scheduled - CPAP/BiPAP at bedtime - Rocephin 1 g IV qD [09/26--] - s/p Azithromycin 500 mg IV qD [09/26-09/28] # Acute on chronic kidney disease versus CKD versus cardiorenal syndrome - Creatinine at the time of admission is 4.4, baseline creatinine in 2022 is 1.6 - Reported that she is following with a screen print operator in [place] but not on hemodialysis and reported that her GFR is less than 30% the last time she visited the doctor - Reported that she did not notice any changes in urine output - 09/28, creatinine 4.1->3.8 while being diuresed with Lasix 40 mg, suggesting a cardiorenal component of initial SUZANNE Plan - Sevelamer 800 mg PO TIDWM - Will continue to monitor renal functions - Mechanic, Dr. Cornell is consulted and recommended no need of dialysis as of now - Strict input and output monitoring - Avoid nephrotoxic medications and renally dose medications - Renal ultrasound is ordered, showed Atrophic left kidney # Hyperkalemia -Likely secondary to the ongoing kidney disease - Potassium at the time of admission is 6 -> 09/27, 5.9 - Patient is using Lokelma at home Plan - Patient was given Kayexalate 30 g once and started on Hydrochlorthiazide 12.5mg once daily - Repeat Renal panel is repeated in the afternoon #? CHF - Patient noted to have shortness of breath but no orthopnea and PND episodes - But patient reported that she had history of heart disease and is currently using aspirin, atorvastatin and carvedilol Plan - Pending echocardiogram - Lasix 40 mg IV twice daily (held) - Fluid restriction - Strict intake and output - CPAP at bedtime - Atorvastatin 80 mg PO qHS - Aspirin 81 mg PO qD - Coreg 25 mg PO BID - Isosorbide mononitrate 60 mg PO qD # Obstructive sleep apnea - Patient had history of obstructive sleep apnea and is using CPAP at night Rx: - CPAP/BiPAP at night # Diabetes mellitus, type II - Patient is using insulin at home Plan - HbA1c is ordered - 6.8% - Started on insulin sliding scale - Will adjust the insulin based on sugars - Hypoglycemic protocol in place # Hypertension - Blood pressure at the time of admission is 160/75 mmHg Plan - Hydralazine 50 mg PO TID - Coreg 25 mg PO BID - Nifedipine 90 mg PO qD # Morbid obesity, class III # Hyperlipidemia Patient BMI 57.7 09/28 lipid panel showed high triglycerides 191, low cholesterol 98, LDL 38, low HDL 22 Rx: - Atorvastatin 80 mg PO qHS # Anxiety Takes home Buspar 7.5 mg PO qD Rx: - Buspar 7.5 mg PO qD Hospital Maintenance: Dispo: Telemetry DVT ppx: Heparin GI ppx: Protonix Diet: Renal IV lines: Peripheral Code status: Full code Patient plan of care was discussed with the attending physician, Dr. Fani Sky DO PGY-1 Attending Provider Attestation/Addendum I have discussed and was present for the essential components of the history, physical examination, diagnosis, and treatment plan with the resident. I agree with the patient's care as documented by the resident and amended herein by me. Lang Mohr DO. Although this document has been carefully reviewed, there may still be some phonetic and other typographical errors. These errors are purely grammatical due to imperfections in the software program and should not be construed in any way to compromise the substance of the patient's medical care during this visit.
[2025-09-29] MEDS: cefTRIAXone/D5w 1gm IV premix 1 GM/50 ML BAG IV (13:05)
[2025-09-29] MEDS: ATORVASTATIN CALCIUM 20 MG TABLET 80 MG PO (21:00)
[2025-09-29] MEDS: ACETAMINOPHEN 325 MG TABLET 650 MG PO (21:01)
--- NOTE | 2025-09-29 23:09 | ESPR_ITS ---
RE: ANNETTE BUTCHER : 1970 DATE OF SERVICE: 09/29/2025 HISTORY OF PRESENT ILLNESS: Briefly, she is a 55-year-old [place] woman with insulin-dependent diabetes; hypertension; obstructive sleep apnea, on CPAP and stage IIIB CKD, whose baseline serum creatinine is around 1.6-1.8 mg/dL since 2022, who presented to the hospital on 09/26/2025 with increasing shortness of breath. Patient was diuresed adequately, and she started making urine. BUN when she was admitted was 52 with a creatinine of 4.4. Kidney function started to improve with IV Lasix. Creatinine initially was found elevated at 4.4, which declined to 4.1 and now at 3.4. CURRENT MEDICATIONS: 1. Acetaminophen. 2. Albuterol. 3. Aspirin. 4. Atorvastatin. 5. Buspirone. 6. Carvedilol 25 mg b.i.d. 7. Rocephin 1 g daily. 8. Furosemide 40 mg, on hold. 9. Pepcid 20 mg p.o. daily. 10. . 11. Isosorbide mononitrate 60 mg daily. 12. Nifedipine 90 mg p.o. daily. 13. Hydralazine 50 mg p.o. t.i.d. 14. Sevelamer 800 mg p.o. t.i.d. with meals. PHYSICAL EXAMINATION: GENERAL: Awake, alert, oriented. VITAL SIGNS: Blood pressure of 138/60, heart rate of 64. HEENT: Anicteric sclerae. Normocephalic. NECK: Supple. No JVD. CHEST AND LUNGS: Symmetrical expansion. Clear breath sounds. CARDIAC: Without murmur. ABDOMEN: Soft and nontender, obese. EXTREMITIES: No edema. LABORATORY DATA: Sodium 150, potassium 4.1, chloride 111, CO2 of 28.5, BUN 49, creatinine 3.4. Hemoglobin 8.6, WBC 4400, platelet count 204,000. ASSESSMENT: 1. Acute kidney injury, most likely secondary to cardiorenal syndrome, now improving. 2. Stage IIIB chronic kidney disease secondary to diabetic nephropathy with proteinuria and possibly secondary to hypertension. 3. Anemia of chronic disease. 4. Proteinuria. 5. Uncontrolled hypertension. 6. Obstructive sleep apnea syndrome, on oxygen. 7. Hypoxia, most likely secondary to decompensated congestive heart failure, now improved. 8. Morbid obesity. PLAN: I agree with stopping her Lasix for now. Continue to monitor her kidney function, volume overload, and electrolytes. DT: 21:53:30 TT: 23:08:00 Ref: [id number] - TID: [id number] MTDD
[2025-09-30] VITALS (17 sets, daily range): BP systolic 130–157; BP diastolic 59–91; PULSE 56–90; RESP 17–24; TEMP 36.2–36.8; O2SAT 90–99; BMI 54.2; BMI 54.3
[2025-09-30] MEDS: ALBUTEROL/IPRATROPIUM (Duoneb) RT SOL 3 ML NEBU INH ×2 (06:32→14:43)
[2025-09-30 08:28] LABS: Albumin, Serum 3.9 gm/dL (3.5-5.0); Anion Gap 10 (7-16); BUN/Creatinine Ratio 15 Ratio (12-20); Blood Urea Nitrogen 45 mg/dL (9-23); Calcium 8.5 mg/dL (8.3-10.6); Calcium (Corrected) 8.6 mg/dL (8.5-10.1); Carbon Dioxide 30.7 mMol/L (20.0-31.0); Chloride 108 mMol/L (98-107); Creatinine (Component) 3.0 mg/dL (0.6-1.3); Estimated Creatinine Clearance 30.5 mL/min (>60); Glucose 109 mg/dL (74-106); Osmolality,Calculated 308 (275-295); Phosphorous 3.9 mg/dL (2.4-5.1); Potassium 4.1 mMol/L (3.4-5.1); Sodium 149 mMol/L (136-145); eGFR 18 See Note
[2025-09-30] MEDS: NIFEdipine XL 30 MG TABCR 90 MG PO (08:52)
[2025-09-30] MEDS: HEPARIN SOD INJ 5000 UNIT/ML VIAL SC ×2 (08:53→21:08)
[2025-09-30] MEDS: ASPIRIN EC 81 MG TABEC PO (08:53)
[2025-09-30] MEDS: ISOSORBIDE ER MONONITRATE 30 MG TABCR 60 MG PO (08:53)
[2025-09-30] MEDS: FAMOTIDINE 20 MG TABLET PO (08:53)
[2025-09-30] MEDS: SEVELAMER CARBONATE 800 MG TABLET PO ×3 (08:53→17:35)
--- NOTE | 2025-09-30 12:03 | PC.SS ---
SS follow up note; Patient's sodium is being monitored. SS was contacted by Sabrina and she informed SS that [facility] worker attempted to contact patient, however patient did not answer. Sabrina met with patient and provided patient with [facility] workers contact number for patient to contact. SS also met with patient and informed patient she needing to continue to contact [facility] to check status on [facility]. Patient verbalized understanding.
--- NOTE | 2025-09-30 13:55 | PC.SS ---
SS follow up note; SS was contacted by Sabrina financial Counselor and she informed that patient HPE [facility] was active. SS sent 02 information to [facility] via [employer].
--- NOTE | 2025-09-30 14:29 | ESPR_ITS ---
<Statement entered by Sasha Hazel MD - 10/01/25 14:53> Patient was seen and examined by me personally. I have directly supervised and reviewed documentation by the team resident and agree with its findings with any exceptions or additional findings as below. Plan of care was discussed with the attending, Dr. Mohr. Sasha Hazel, PGY-3 Documentation for date of: 09/30/25 Subjective Subjective Interval history: No overnight events. Patient was examined at bedside; they appear A&Ox3 and in NAD. Vitals/labs today significant for BP 149/80, sodium 150->149, creatinine 3.4->3.0. Physical exam was non-contributory. Patient continues to appear clinically improved. Lasix will continue being held as it was yesterday as patient's sodium remains quite elevated. Otherwise, patient is still pending insurance authorization for home O2 as well as echocardiogram read to evaluate for possible congestive heart failure. She is anticipated to be discharged tomorrow. Exam Vital Signs Temp Pulse Resp BP Pulse Ox O2 Del Method O2 Flow Rate 97.2 F 56 L 18 148/72 H 95 Nasal Cannula 2 09/30/25 11:59 09/30/25 11:59 09/30/25 11:59 09/30/25 11:59 09/30/25 11:59 09/30/25 11:59 09/30/25 08:00 FiO2 4 09/27/25 06:00 Narrative Exam General: Awake. Morbidly obese HEENT: Normocephalic, atraumatic, mucous membranes moist. Heart: Regular rate and rhythm, no murmurs. Lungs: Clear to auscultation with no wheezing or crackles. Abdomen: Soft, nondistended, nontender, positive bowel sounds. ?No guarding or rebound tenderness. Neurologic: Alert and oriented x3, no gross neurological deficit, and patient able to move all 4 extremities. Extremities: Bilateral 1+ pitting pedal edema Skin: No rash or ecchymoses. Objective Labs 10/01/25 09:55 10/01/25 09:55 Labs: Laboratory Results - last 24 hr 09/30/25 07:15 Sodium 149 H Potassium 4.1 Chloride 108 H Carbon Dioxide 30.7 Anion Gap 10 BUN 45 H Creatinine 3.0 H Estim Creat Clear Calc 30.5 L eGFR 18 L BUN/Creatinine Ratio 15 Glucose 109 H Calculated Osmolality 308 H Calcium 8.5 Corrected Calcium 8.6 Phosphorus 3.9 Albumin 3.9 D ABG Interpretation ABG results: 09/26/25 12:00 VBG pH 7.21 L VBG pCO2 59 H VBG pO2 48 VBG Base Excess -5 L Quality Measures Quality Measures none Assessment & Plan Assessment Current Active Medications: Generic Name Dose Route Start Last Admin Trade Name Freq PRN Reason Stop Dose Admin Acetaminophen 650 mg 09/27/25 13:01 09/29/25 21:01 Acetaminophen 325 Mg Tablet PO 10/26/25 14:36 650 mg Q6H PRN Administration Fever >100.4 Albuterol/Ipratropium 3 ml 09/26/25 23:00 09/30/25 06:32 Albuterol/Ipratropium (Duoneb) Rt Ariadne 3 Ml Nebu INH 10/26/25 22:59 3 ml Q8HRRT GERHARD Administration Aspirin 81 mg 09/28/25 09:00 09/30/25 08:53 Aspirin Ec 81 Mg Tabec PO 10/28/25 08:59 81 mg QDAY GERHARD Administration Atorvastatin Calcium 80 mg 09/28/25 21:00 09/29/25 21:00 Atorvastatin Calcium 20 Mg Tablet PO 10/28/25 20:59 80 mg QPM GERHARD Administration Buspirone HCl 7.5 mg 09/28/25 09:00 09/30/25 08:53 Buspirone Hcl 5 Mg Tablet PO 10/28/25 08:59 7.5 mg QDAY GERHARD Administration Carvedilol 25 mg 09/28/25 09:00 09/30/25 08:52 Carvedilol 12.5 Mg Tablet PO 10/28/25 08:59 25 mg BID GERHARD Administration Cyclobenzaprine HCl 10 mg 09/30/25 10:11 09/30/25 11:18 Cyclobenzaprine 5 Mg Tablet PO 10 mg BID PRN Administration muscle spasm Dextrose 25 ml 09/26/25 16:39 Dextrose 50%-Water Inj 50 Ml Syringe IV 10/26/25 16:38 Q15MIN PRN BG 50-70 responsive npo pt Dextrose 50 ml 09/26/25 16:39 Dextrose 50%-Water Inj 50 Ml Syringe IV 10/26/25 16:38 Q15MIN PRN BG <50 OR BG <70 & pt unresponsive Famotidine 20 mg 09/28/25 09:15 09/30/25 08:53 Famotidine 20 Mg Tablet PO 10/28/25 09:14 20 mg QDAY GERHARD Administration Furosemide 40 mg 09/28/25 18:00 09/29/25 05:46 Furosemide Inj 10 Mg/Ml 4ml Vial IVP 10/28/25 17:59 40 mg On Hold: 09/29/25 08:18 BIDD GERHARD Administration Glucagon 1 mg 09/26/25 16:39 Glucagon Inj 1 Mg Vial IM Q15MIN PRN BG <70, and no IV access Heparin Sodium (Porcine) 5,000 unit 09/26/25 21:00 09/30/25 08:53 Heparin Sod Inj 5000 Unit/Ml Vial SC 10/10/25 20:59 5,000 unit Q12HR GERHARD Administration Hydralazine HCl 50 mg 09/28/25 22:00 09/30/25 05:27 Hydralazine Hcl 25 Mg Tablet PO 10/28/25 21:59 50 mg TID GERHARD Administration Hydroxyzine HCl 10 mg 09/30/25 11:50 09/30/25 12:33 Hydroxyzine Hcl 10 Mg Tablet PO 10/30/25 11:49 10 mg Q6HR PRN Administration Anxiety Ceftriaxone Sodium/Dextrose 1 gm in 50 mls @ 100 mls/hr 09/26/25 16:29 09/29/25 13:05 Rocephin/D5w 1gm Iv Premix IV 10/03/25 16:28 100 mls/hr QDAY@1400 GERHARD Administration Insulin Human Lispro 0 unit 09/26/25 17:00 09/30/25 11:17 Insulin Lispro (Admelog) 1 Unit/0.01 Ml Unit SC 10/26/25 16:59 Not Given ACHS [facility] Protocol Isosorbide Mononitrate 60 mg 09/28/25 10:30 09/30/25 08:53 Isosorbide Er Mononitrate 30 Mg Tabcr PO 10/28/25 10:29 60 mg QDAY GERHARD Administration Nifedipine 90 mg 09/29/25 09:00 09/30/25 08:52 Nifedipine Xl 30 Mg Tabcr PO 10/29/25 08:59 90 mg QDAY GERHARD Administration Ondansetron HCl 4 mg 09/26/25 14:37 Ondansetron Inj 2 Mg/Ml Inj 2 Ml IVP 10/26/25 14:36 Q6H PRN NAUSEA OR VOMITING Protocol Sennosides 1 tab 09/27/25 09:00 09/30/25 08:53 Senna Tablet PO 10/27/25 08:59 1 tab QDAY GERHARD Administration Protocol Sevelamer Carbonate 800 mg 09/28/25 08:00 09/30/25 11:18 Sevelamer Carbonate 800 Mg Tablet PO 10/28/25 07:59 800 mg TIDWM GERHARD Administration Sodium Chloride 3 ml 09/26/25 14:03 09/26/25 14:27 Sodium Chloride Rt Ariadne 0.9% 3 Ml Nebu INH 10/26/25 14:02 3 ml PRN PRN Administration SOLN Plan A 55-year-old female who who is morbidly obese with significant past medical history of hypertension, diabetes mellitus, heart failure, chronic kidney disease, hyperlipidemia, chronic anemia, obstructive sleep apnea on CPAP, on oxygen, 2 L at home presented to the hospital with chief complaints of shortness of breath since 3 days. # Acute on chronic hypoxic hypercapnic respiratory failure # 2/2 Fluid overload - CHF Vs Acute on CKD # 2/2 Medication non-compliance - Presented to the hospital with chief complaints of shortness of breath since 3 days - Reported 1 febrile episode 2 days before the hospital admission but denies cough, sputum production - Reported that she is not taking her medications since 5 days - Patient is using 2 L of oxygen at home as needed but noted to have SpO2 87% with 2 L nasal cannula and noted to have increased oxygen requirements - On auscultation, no abnormal breath sounds are appreciated as the patient is obese - Chest x-ray is done, noted to have vascular congestion but noted to have poor quality image Plan - Lasix 40 mg IV twice daily (held today due to hyponatremia 150->149) - Strict input and output - Fluid restriction to 2000 mL - Continue oxygen (patient is pending insurance authorization for home O2) - Nebulizations every 8 hourly scheduled - CPAP/BiPAP at bedtime - Rocephin 1 g IV qD [09/26--] - s/p Azithromycin 500 mg IV qD [09/26-09/28] # Acute on chronic kidney disease versus CKD versus cardiorenal syndrome - Creatinine at the time of admission is 4.4, baseline creatinine in 2022 is 1.6 - Reported that she is following with a medical record consultant in [place] but not on hemodialysis and reported that her GFR is less than 30% the last time she visited the doctor - Reported that she did not notice any changes in urine output - 09/28, creatinine 4.1->3.8 while being diuresed with Lasix 40 mg, suggesting a cardiorenal component of initial SUZANNE Plan - Sevelamer 800 mg PO TIDWM - Will continue to monitor renal functions - Lamps Tester And Inspector, Dr. Cornell is consulted and recommended no need of dialysis as of now - Strict input and output monitoring - Avoid nephrotoxic medications and renally dose medications - Renal ultrasound is ordered, showed Atrophic left kidney # Hyperkalemia -Likely secondary to the ongoing kidney disease - Potassium at the time of admission is 6 -> 09/27, 5.9 - Patient is using Lokelma at home Plan - Patient was given Kayexalate 30 g once and started on Hydrochlorthiazide 12.5mg once daily - Repeat Renal panel is repeated in the afternoon #? CHF - Patient noted to have shortness of breath but no orthopnea and PND episodes - But patient reported that she had history of heart disease and is currently using aspirin, atorvastatin and carvedilol Plan - Pending echocardiogram - Lasix 40 mg IV twice daily (held today due to hyponatremia 150->149) - Fluid restriction - Strict intake and output - CPAP at bedtime - Atorvastatin 80 mg PO qHS - Aspirin 81 mg PO qD - Coreg 25 mg PO BID - Isosorbide mononitrate 60 mg PO qD # Obstructive sleep apnea - Patient had history of obstructive sleep apnea and is using CPAP at night Rx: - CPAP/BiPAP at night # Diabetes mellitus, type II - Patient is using insulin at home Plan - HbA1c is ordered - 6.8% - Started on insulin sliding scale - Will adjust the insulin based on sugars - Hypoglycemic protocol in place # Hypertension - Blood pressure at the time of admission is 160/75 mmHg Plan - Hydralazine 50 mg PO TID - Coreg 25 mg PO BID - Nifedipine 90 mg PO qD # Morbid obesity, class III # Hyperlipidemia Patient BMI 57.7 09/28 lipid panel showed high triglycerides 191, low cholesterol 98, LDL 38, low HDL 22 Rx: - Atorvastatin 80 mg PO qHS # Anxiety Takes home Buspar 7.5 mg PO qD Rx: - Buspar 7.5 mg PO qD Hospital Maintenance: Dispo: Telemetry DVT ppx: Heparin GI ppx: Protonix Diet: Renal IV lines: Peripheral Code status: Full code Patient plan of care was discussed with the attending physician, Dr. Fani Sky DO PGY-1 Attending Provider Attestation/Addendum I have discussed and was present for the essential components of the history, physical examination, diagnosis, and treatment plan with the resident. I agree with the patient's care as documented by the resident and amended herein by me. Lang Mohr DO. Although this document has been carefully reviewed, there may still be some phonetic and other typographical errors. These errors are purely grammatical due to imperfections in the software program and should not be construed in any way to compromise the substance of the patient's medical care during this visit.
--- NOTE | 2025-09-30 14:43 | PC.SS ---
OXYGEN Pt is discharged in a chronic stable state and has been treated optimally and has other respiratory needs. Oxygen has been ordered due to Covid and acute hypoxic respiratory failure. To secure a safe discharge for the pt home oxygen is needed. The pt is mobile within the home and will need continuous, portable O2 via nasal cannula. Pt is discharged in a chronic stable state and has been treated optimally and has other respiratory needs. Oxygen has been ordered due to Covid and acute hypoxic respiratory failure.
[2025-09-30] MEDS: cefTRIAXone/D5w 1gm IV premix 1 GM/50 ML BAG IV (14:56)
--- NOTE | 2025-09-30 15:11 | PC.NURSE ---
Pts o2 sats are 96% on 3L NC while resting, placed pt on room air and o2 sats dropped to 88% while resting.
--- NOTE | 2025-09-30 15:21 | PC.NURSE ---
pts o2 sats on room air are 88%
--- NOTE | 2025-09-30 16:11 | PC.SS ---
SS follow up note; SS was contacted by Shannan and she informed SS that 02 tank and concentrator would be delivered tomorrow morning. SS notified Nurse Katerin to hand off report to nice nurse. SS will stand by for further needs.
[2025-09-30] MEDS: ATORVASTATIN CALCIUM 20 MG TABLET 80 MG PO (21:00)
[2025-10-01] VITALS (15 sets, daily range): BP systolic 119–164; BP diastolic 51–84; PULSE 61–78; RESP 17–22; TEMP 36.2–36.9; O2SAT 92–100; BMI 54.3
[2025-10-01] MEDS: ALBUTEROL/IPRATROPIUM (Duoneb) RT SOL 3 ML NEBU INH ×2 (07:01→14:51)
[2025-10-01] MEDS: NIFEdipine XL 30 MG TABCR 90 MG PO (08:58)
[2025-10-01] MEDS: FAMOTIDINE 20 MG TABLET PO (09:00)
[2025-10-01] MEDS: ISOSORBIDE ER MONONITRATE 30 MG TABCR 60 MG PO (09:02)
[2025-10-01] MEDS: ASPIRIN EC 81 MG TABEC PO (09:05)
[2025-10-01] MEDS: SEVELAMER CARBONATE 800 MG TABLET PO ×2 (09:07→11:45)
[2025-10-01] MEDS: HEPARIN SOD INJ 5000 UNIT/ML VIAL SC (09:08)
--- NOTE | 2025-10-01 10:09 | PC.SS ---
Walkers The diagnosis creates mobility limitation that significantly impairs ability to participate in the patients activities of daily living either in their entirety, or in a reasonable time frame. Also the patient is able to safely use the walker and the patient?s mobility is sufficiently resolved with the use of the walker and cane has been ruled out.
[2025-10-01 10:51] LABS: Alanine Aminotransferase 8 U/L (10-49); Albumin, Serum 3.5 gm/dL (3.5-5.0); Albumin/Globulin Ratio 1.5 (1.2-2.2); Alkaline Phosphatase 42 U/L (46-116); Anion Gap 7 (7-16); Aspartate Amino Transferase 16 U/L (0-34); BUN/Creatinine Ratio 14 Ratio (12-20); Bilirubin,Total 0.2 mg/dL (0.3-1.2); Blood Urea Nitrogen 42 mg/dL (9-23); Calcium 8.2 mg/dL (8.3-10.6); Calcium (Corrected) 8.6 mg/dL (8.5-10.1); Carbon Dioxide 30.7 mMol/L (20.0-31.0); Chloride 109 mMol/L (98-107); Creatinine (Component) 2.9 mg/dL (0.6-1.3); Estimated Creatinine Clearance 31.1 mL/min (>60); Globulin 2.3 gm/dL (2.3-3.5); Glucose 158 mg/dL (74-106); Osmolality,Calculated 305 (275-295); Potassium 3.7 mMol/L (3.4-5.1); Sodium 147 mMol/L (136-145); Total Protein 5.8 gm/dL (5.7-8.2); eGFR 18 See Note
--- NOTE | 2025-10-01 11:23 | PC.SS ---
WAREHOUSE REPRESENTATIVE submitted referral for walker on behalf of the patient. Referral submitted on [facility]. WAREHOUSE REPRESENTATIVE confirmed with patient that family will transport patient home. Patient confirmed pharmacy of choice is [facility]. Oxygen arrival pending. WAREHOUSE REPRESENTATIVE updated bedside nurse.
[2025-10-01 11:30] LABS: Basophils # (Auto) 0.0 Thou/mm3 (0.0-0.2); Basophils % (Auto) 1 % (0-2.5); Eosinophils # (Auto) 0.2 Thou/mm3 (0.0-0.5); Eosinophils % (Auto) 4 % (0-10); Hematocrit 30.7 % (36.0-46.0); Hemoglobin 9.4 g/dL (12.0-16.0); Immature Granulocytes Auto 0.05 Thou/mm3 (0.00-0.00); Lymphocytes # (Auto) 0.6 Thou/mm3 (1.0-4.8); Lymphocytes % (Auto) 10 % (10-50); Mean Corpuscular HGB Conc 30.6 g/dl (31.0-37.0); Mean Corpuscular Hemoglobin 27.6 pg (25.0-35.0); Mean Corpuscular Volume 90 fL (80-100); Monocytes # (Auto) 0.4 Thou/mm3 (0.0-0.8); Monocytes % (Auto) 7 % (0-12); Neutrophils # (Auto) 4.4 Thou/mm3 (1.8-7.7); Neutrophils % (Auto) 77 % (37-80); Nucleated Red Blood Cell # 0.00 Thou/mm3 (0.00-0.00); Nucleated Red Blood Cell % 0 /100 WBC (0); Platelet Count 171 Thou/mm3 (140-440); RDW Standard Deviation 45.9 fL (36.4-46.3); Red Blood Count 3.40 Miln/mm3 (4.00-5.20); White Blood Count 5.6 Thou/mm3 (3.6-11.0)
--- NOTE | 2025-10-01 13:40 | ESDS_ITS ---
Planned Discharge Date 10/01/25 DS: Providers Provider Date of admission: 09/26/25 14:37 Primary care physician: Physician No Primary/Family Admitting Provider: Shahid Rodriguez MD Attending Provider on Admission: Juma Mohr DO Consults: 09/26/25 14:03 Consult to Nephrology Stat Comment: SUZANNE on CKD Consulting Provider: Shivani Cornell 09/28/25 08:10 Consult to Nephrology Routine Comment: Consulting Provider: Shivani Cornell 09/28/25 14:40 Referral Physical Therapy Routine Comment: Physician Instructions: Instructions: Patient may need home O2 Attending Provider on DC: Juma Mohr DO Discharging Provider: Jarred Hinojosa MD DS: Diagnosis Problem List Completed Was Problem List Reviewed/Reconciled?: Yes Hospital Course Hospital Course Hospital course: This 55-year-old female with a significant medical history including morbid obesity, hypertension, diabetes mellitus, chronic kidney disease (CKD), heart failure, hyperlipidemia, chronic anemia, and obstructive sleep apnea (DANYA) was admitted for acute respiratory distress and hypoxic hypercapnic respiratory failure, likely secondary to fluid overload (CHF vs. Acute on CKD). The patient had non-compliance with her medications over the past 5 days, which contributed to her presentation. Upon admission, she was started on Lasix, IV fluids were monitored, and oxygen was administered as needed. She also received nebulization treatments and was started on antibiotics for a suspected respiratory infection due to a febrile episode reported prior to admission. Her renal function was closely monitored, and she received Kayexalate and other supportive measures for hyperkalemia. Over the course of the hospitalization, the patient?s respiratory and renal function improved with diuresis and fluid management. The patient was also started on medications for her hypertension and diabetes. Diagnosis during admission: #Acute on Chronic Hypoxic Hypercapnic Respiratory Failure (likely secondary to fluid overload, CHF vs. Acute on CKD) #Acute Kidney Injury on Chronic Kidney Disease #Hyperkalemia (resolved) #Congestive Heart Failure (CHF) #Obstructive Sleep Apnea #Diabetes Mellitus, Type II #Hypertension #Morbid Obesity #Hyperlipidemia #Anxiety Discharge instructions: -Follow-up with PCP within 1 week of discharge. If you do not have appointment, please follow-up with the [facility] with Dr. Hooks. Call [phone] to make an appointment. -Recommended to follow up with [employer] Dr. Nova within 1 week of discharge -Recommended weight loss, salt and fluid restriction, Physical activity -Repeat Renal panel within 1 week of discharge -Recommended to continue oxygen and cpap -Recommended to start taking taking Furosemide 40mg every other day, take every day if noted to have worsening edema in the lower extremities -Start taking Nifedipine 90mg once daily and stop Amlodipine -Take Hydralazine 50mg thrice daily -Take Sevelamer carbonate 800mg thrice daily with the meals -Stop Lisinopril and Hydrochlorthiazide (thiazide diuretic is stopped as per [employer] recommendation) -Stop Insulin for now as you did not require insulin in the hospital and follow up with PCP for adjustment of Diabetic medications -Take rest of the home medications -Return to ED if symptoms persist or return ----- Plan discussed with attending physician Dr. Fani Hinojosa MD PGY-1 Internal Medicine Time Spent with Patient Time attestation: Total time spent providing and/or coordinating discharge services: Time spent: Greater than 30 minutes Exam Vital Signs Temp Pulse Resp BP Pulse Ox O2 Del Method O2 Flow Rate 98.3 F 64 18 159/84 H 95 Nasal Cannula 2 10/01/25 12:00 10/01/25 12:00 10/01/25 12:00 10/01/25 12:00 10/01/25 12:00 10/01/25 12:00 10/01/25 12:00 FiO2 4 09/27/25 06:00 Narrative Exam General: Awake. Morbidly obese HEENT: Normocephalic, atraumatic, mucous membranes moist. Heart: Regular rate and rhythm, no murmurs. Lungs: Clear to auscultation with no wheezing or crackles. Abdomen: Soft, nondistended, nontender, positive bowel sounds. ?No guarding or rebound tenderness. Neurologic: Alert and oriented x3, no gross neurological deficit, and patient able to move all 4 extremities. Extremities: Bilateral 1+ pitting pedal edema Skin: No rash or ecchymoses. Discharge Plan Plan Patient Disposition: Home w/HOME HEALTH Patient condition on transfer: Stable Care Plan Goals: -Follow-up with PCP within 1 week of discharge. If you do not have appointment, please follow-up with the [facility] with Dr. Hooks. Call [phone] to make an appointment. -Recommended to follow up with [facility] [employer] Dr. Nova within 1 week of discharge -Recommended weight loss, salt and fluid restriction, Physical activity -Repeat Renal panel within 1 week of discharge -Recommended to continue oxygen and cpap -Recommended to start taking taking Furosemide 40mg every other day, take every day if noted to have worsening edema in the lower extremities -Start taking Nifedipine 90mg once daily and stop Amlodipine -Take Hydralazine 50mg thrice daily -Take Sevelamer carbonate 800mg thrice daily with the meals -Stop Lisinopril and Hydrochlorthiazide (thiazide diuretic is stopped as per [employer] Operator recommendation) -Stop Insulin for now as you did not require insulin in the hospital and follow up with PCP for adjustment of Diabetic medications -Take rest of the home medications -Return to ED if symptoms persist or return Prescriptions/Referrals Prescriptions/Med Rec: New nifedipine 90 mg tablet extended release 90 mg PO QDAY Qty: 30 2RF sevelamer carbonate 800 mg tablet 800 mg PO TID Qty: 30 3RF Rx Instructions: must administer with a meal/food furosemide [Lasix] 40 mg tablet 40 mg PO Q OTHER DAY Qty: 30 2RF hydralazine 50 mg tablet 50 mg PO TID Qty: 30 3RF Continued isosorbide mononitrate 30 mg Tablet Extended Release 24 Hr 60 mg PO QDAY arformoterol [Brovana] 15 mcg/2 mL Solution For Nebulization 2 ml INHALATION BID cyclobenzaprine 10 mg tablet 10 mg PO BID PRN (Reason: muscle spasm) Patient Comments: TAKE ONE TABLET BY MOUTH TWICE DAILY NEEDED FOR muscle pain carvedilol 25 mg tablet 25 mg PO BID Patient Comments: TAKE ONE TABLET BY MOUTH TWICE DAILY WITH FOOD buspirone 7.5 mg tablet 7.5 mg PO QDAY Patient Comments: TAKE ONE TABLET BY MOUTH TWICE DAILY atorvastatin 80 mg Tablet 80 mg PO QPM Qty: 30 0RF Lokelma 10 gram powder in packet 10 g PO QDAY Qty: 30 0RF aspirin 81 mg capsule 81 mg PO QDAY Qty: 30 0RF methocarbamol 750 mg tablet 750 mg PO TID Qty: 20 0RF tizanidine 2 mg capsule 2 mg PO Q8H PRN (Reason: muscle spasticity) lidocaine 5 % adhesive patch,medicated 1 patch topical QDAY PRN (Reason: back pain) Rx Instructions: leave on most painful area for up to 12 hrs diclofenac sodium 1 % gel 2 g topical QID PRN (Reason: muscle pain) Rx Instructions: apply to single elbow, wrist or hand; for hand includes palm/fingers/back of hand Discontinued albuterol sulfate [ProAir HFA] 8.5 GM HFA aerosol inhaler 1 - 2 puff Inhalation Q4H PRN (Reason: sob) Qty: 0 insulin glargine [Lantus U-100 Insulin] 100 unit/mL Solution 25 unit SUBCUT QDAY amlodipine 5 mg Tablet 10 mg PO QDAY Qty: 30 0RF aspirin 81 mg Tablet,Delayed Release (Dr/Ec) 81 mg PO QDAY Qty: 30 0RF atorvastatin 80 mg tablet 80 mg PO QPM Qty: 30 0RF amlodipine [Norvasc] 10 mg tablet 10 mg PO QDAY Qty: 30 0RF lisinopril 20 mg tablet 20 mg PO QDAY Qty: 30 0RF hydrochlorothiazide 25 mg tablet 25 mg PO TID Referrals: No Primary/Family,Physician [Primary Care Provider] Toy Nova MD [Physician, Nephrology] Patient/Caregiver Discharge Instructions Education Materials: Shortness of Breath Maximizing ..., Your High Blood Pressure Risk Factors, Exercise to Help Your Kidneys, Anemia and Kidney Disease, Shortness of Breath Coping, Acute Kidney Failure Dc, Breathing Problems Print Language: Yi Stand Alone Forms: Katerin Award Info., Patient Portal Info Letter Discharge Order Discharge Orders: Discharge (Routine); Ordered 10/01/25 Ordered By: Mark Hooks Quality Discharge Quality Measures VTE prophylaxis Attestestation Attestation I have discussed and was present for the essential components of the discharge history, physical examination, diagnosis, and discharge treatment plan with the resident. I agree with the patient's discharge care as documented by the resident and amended herein by me. Lang Mohr DO. The patient understood all discharge instructions, all questions were answered satisfactorily. The patient was instructed to return to the Emergency Department is symptoms worsened or persisted. Patient was discharged with home health physical therapy, the patient was stable, afebrile, tolerating p.o. intake at time of discharge home. Home health was ordered and delivered for the patient. Although this document has been carefully reviewed, there may still be some phonetic and other typographical errors. These errors are purely grammatical due to imperfections in the software program and should not be construed in any way to compromise the substance of the patient's medical care during this visit.
--- NOTE | 2025-10-01 17:35 | PC.CC ---
1720: received HH order. No pcp listed on HH order. Facesheet states [facility]. Transfer nurse to f/u with [facility] tomorrow to obtain provider information and proceed with HH ref.
--- NOTE | 2025-10-03 08:52 | PC.CM ---
Patient has not established with a PCP at [facility]. Patient not able to have home health follow.
== END 2025-10-01 15:30 | disposition home health service (06) | DRG 194 ==
LOC: SERX 15:25 → SERHOLD 15:28 → S2NX 20:12 → S3SX 09-29 14:28
PROVIDERS: Internal Medicine Nephrology; Nurse Practitioner Family; Admitting Provider Student in an Organized Health Care Education/Training Program; Emergency Provider Family Medicine; Visit Provider Student in an Organized Health Care Education/Training Program
DX: I13.0 Hypertensive heart and chronic kidney disease with heart failure and stage 1 through stage 4 chronic kidney disease, or unspecified chronic kidney disease (principal); J96.21 Acute and chronic respiratory failure with hypoxia; J96.22 Acute and chronic respiratory failure with hypercapnia; N17.9 Acute kidney failure, unspecified; E87.1 Hypo-osmolality and hyponatremia; Z68.43 Body mass index [BMI] 50.0-59.9, adult; E87.0 Hyperosmolality and hypernatremia; E78.5 Hyperlipidemia, unspecified; E11.22 Type 2 diabetes mellitus with diabetic chronic kidney disease; E66.01 Morbid (severe) obesity due to excess calories; G47.33 Obstructive sleep apnea (adult) (pediatric); E87.5 Hyperkalemia; D63.1 Anemia in chronic kidney disease; J44.9 Chronic obstructive pulmonary disease, unspecified; E66.813 Obesity, class 3; I50.9 Heart failure, unspecified; F41.9 Anxiety disorder, unspecified; N18.32 Chronic kidney disease, stage 3b; Z79.4 Long term (current) use of insulin; Z91.148 Patient's other noncompliance with medication regimen for other reason; Z79.82 Long term (current) use of aspirin; Z79.899 Other long term (current) drug therapy; Z88.8 Allergy status to other drugs, medicaments and biological substances
CPT/HCPCS: 36415; 71045; 76770; 80053; 80061; 80069; 81001; 82803; 83036; 83540; 83550; 83735; 83880; 84443; 84484; 85025; 85610; 85730; 87086; 87502; 87635; 93005; 93306; 94640; 94660; 94664; 96361; 96365; 96375; 96376; 97162; 99284; A9270; J0360; J0612; J0696; J1100; J1644; J1815; J1938; J2470; J7030; J7611